=== PATIENT | male | born 1945 | race Caucasian/White ===

== ENCOUNTER 2022-12-20 18:52 | Emergency (ER) | payer MEDICARE, OTHER, SELFPAY ==
[2022-12-20] VITALS (29 sets, daily range): BP systolic 141–189; BP diastolic 68–84; PULSE 55–87; RESP 14–26; TEMP 37.1; O2SAT 79–99; BMI 28.6
--- NOTE | 2022-12-20 19:20 | ED.ABDPAIN1 ---
HPI - Abdominal Pain General Chief Complaint: Abdominal Pain Stated Complaint: nausea Time Seen by Provider: 12/20/22 19:04 Source: patient and family () Mode of arrival: walk-in Limitations: no limitations History of Present Illness HPI narrative: This 77-year-old male presents for evaluation of generalized abdominal pain with nausea, vomiting of clear emesis and constipation. The patient states that he took 3 Dulcolax a day in the past several days but has only passed a small amount of stool. The patient states he typically takes MiraLAX every day but has gotten off of his routine. He thinks that his constipation has gotten away from him. He is not passing gas. 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 He has been getting his routine follow-ups and has not had any recurrence of the cancer since that time. He has not recently had any weight loss. He denies any bloating. He states he does feel short of breath. He has had bypass surgery in the past. He has no hetal chest pain. He has been urinating normally. He has no pain or lower extremity pain or swelling. He has not had any vomiting of any foodstuff. He denies that he has eaten since yesterday so the likelihood is not that he has a foreign body in his esophagus which is causing him to have repeated emesis of clear secretions. Related Data Allergies Allergy/AdvReac Type Severity Reaction Status Date / Time No Known Drug Allergies Allergy Verified 12/20/22 19:00 Review of Systems ROS Status of ROS 10 or more systems reviewed and unremarkable except as noted in history and below PFSH PFSH Social History Smoking status: Former smoker Exam Narrative Exam Narrative: Nurses note and vital signs reviewed and patient is not hypoxic. Blood pressure is noted to be elevated at 165/74 General: Alert, nontoxic but uncomfortable appearing male sitting on the stretcher spitting clear secretions into a basin, no resp distress Skin: Warm, dry, no pallor noted. There is no rash noted. Head: Normocephalic, atraumatic Eye: Normal conjunctiva, no drainage, EOMI. PERRL Cardiovascular: Regular Rate and Rhythm S1 S2, no murmurs, rubs or gallops, pulses are brisk and equal bilaterally Respiratory: Patient is in no distress, no accessory muscle use, lungs are clear to auscultation, no wheezing, rales or rhonchi Back: non-tender, no CVA tenderness bilaterally to percussion. GI: Decreased bowel sounds, small, soft ventral hernia, no reproducible tenderness in RUQ, RLQ, epigastrium or LUQ, mild tenderness and fullness to LLq, no pulsatile masses or abdominal bruit appreciated Musculoskeletal: The patient has no evidence of calf tenderness, no pitting edema, symmetrical pulses noted bilaterally Neurological: A&O x4, normal speech Psychiatric: anxious, alert Constitutional Vital Signs, click to edit/add: Last Vital Signs Temp 98.8 F 12/20/22 18:56 Pulse 70 12/20/22 23:00 Resp 14 12/20/22 20:00 BP 141/74 12/20/22 23:00 Pulse Ox 96 12/20/22 23:00 O2 Del Method Room Air 12/20/22 18:56 Course Vital Signs Vital signs: Vital Signs Temperature 98.8 F 12/20/22 18:56 Pulse Rate 74 12/20/22 18:56 Respiratory Rate 20 12/20/22 18:56 Blood Pressure 180/84 H 12/20/22 18:56 Pulse Oximetry 99 12/20/22 18:56 Oxygen Delivery Method Room Air 12/20/22 18:56 Temperature 98.8 F 12/20/22 18:56 Pulse Rate 70 12/20/22 23:00 Respiratory Rate 14 12/20/22 20:00 Blood Pressure 141/74 12/20/22 23:00 Pulse Oximetry 96 12/20/22 23:00 Oxygen Delivery Method Room Air 12/20/22 18:56 MDM - Abdominal Pain MDM Narrative Medical decision making narrative: This 77-year-old male with 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 He had not eaten anything since yesterday making the likelihood that he had an esophageal foreign body unlikely. His abdomen was soft with no reproducible tenderness. Does have a history of coronary artery disease and is status post bypass surgery in the past. EKG was ordered and it shows a RBBB but no acute changes, an IV was established and he was medicated with iL NS, 4mg IV morphine and 4mg IV zofran. This helped his nausea but not his pain and he was remedicated with a milligram of IV Dilaudid. His pain was under control at that time. Routine labs including CBC with differential, comprehensive metabolic profile, lipase and lactic acid were ordered. His lactic acid is 2. Lipase is normal. Abdomen elevated creatinine at 1.8. CT scan of the abdomen and pelvis with IV contrast Was ordered due to the acute onset of his abdominal pain and history of sarcoma. I considered a noncontrast CT scan but felt that it would not give us the information we needed if his cancer had occurred or become metastatic. CT scan of the abdomen and pelvis shows acute diverticulitis and multiple hepatic cysts, well as gallstones. His symptoms are likely related to diverticulitis and he was medicated in emergency department with 500 mg of IV Cipro and 500 mg of IV Flagyl. His pain has been under control since the 1 mg of Dilaudid. He will be discharged home with a prescription for Percocet, Zofran, Cipro and Flagyl. He will follow up closely with his family physician. He was encouraged return to emergency department for worsening pain, inability to tolerate his medications, his fevers or any concerns. Medical Records Medical records narrative: [place] [address] CT Scan Report Signed Patient: CRYSTAL KING MR#: [id number] : 1945 Acct:[id number] Age/Sex: 77 / M ADM Date: 12/20/22 Loc: ER Attending Dr: Ordering Physician: Pearl Chapin Date of Service: 12/20/22 Procedure(s): CT abdomen pelvis w con Accession Number(s): [id number] cc: DEVAUGHN DALLAS ~ The [address] [address] Patient Name: CRYSTAL KING MRN: [id number] date: 1945 Sex: M Assigned Patient Location: ER Current Patient Location: ER Accession/Order Number: [id number] Exam Date: 12/20/2022 21:00 Report Date: 12/20/2022 22:06 At the request of: PEARL CHAPIN Procedure: CT abdomen pelvis w con EXAM: CT abdomen pelvis w con TECHNIQUE: Axial CT images were obtained of the abdomen and pelvis with intravenous contrast. Sagittal and coronal reformatted images were also obtained. Dose reduction techniques were achieved by using automated exposure control and/or adjustment of mA and/or kV according to patient size and/or use of iterative reconstruction technique. HISTORY: SBO COMPARISON: 07/14/2013 FINDINGS: Lower chest: Linear atelectasis in the left lung base. Liver: Numerous hepatic cysts measuring up to 6 cm in segment 7. Gallbladder: Multiple tiny calcific stones of the gallbladder. Pancreas: The pancreas is homogeneous without evidence for mass lesion or inflammation. Spleen: The spleen is unremarkable without evidence for mass lesion. Adrenal glands: 15 mm adenoma of the left adrenal gland. Unremarkable right adrenal gland. Kidneys and bladder: Tiny cyst of the anterior cortex left kidney. Prior right nephrectomy with scarring posteriorly the right renal fossa.. The ureters demonstrate normal caliber. The urinary bladder is unremarkable. GI Tract: Stomach is unremarkable. Visualized small bowel is unremarkable without evidence for obstruction or active inflammation. The appendix is unremarkable.Wall thickening and inflammation of the proximal sigmoid colon where there are multiple diverticuli, consistent with acute diverticulitis. No diverticular abscess. Reproductive: The prostate gland is enlarged. Lymph nodes: No retroperitoneal or abdominal lymphadenopathy. Vascular: The aorta is not dilated. Mesenteric vessels are patent. Peritoneum: No free intraperitoneal air or fluid. No acute inflammation. Abdominal wall: Multiple small fat-containing supraumbilical anterior abdominal hernias. Severe degenerative disc disease at L2-L3 and L5-S1. CT/CT abdomen pelvis w con IMPRESSION: Acute diverticulitis of the proximal sigmoid colon. No evidence for diverticular abscess. Lab Data Labs: Lab Results 12/20/22 12/20/22 Range/Units 19:10 21:38 WBC 10.4 (4.0-11.0) 10^3/uL RBC 4.11 L (4.70-6.10) 10^6/uL Hgb 14.7 (14.0-18.0) g/dL Hct 41.1 L (42.0-54.0) % MCV 100.0 H (80.0-94.0) fL MCH 35.8 H (25.9-34.0) pg MCHC 35.8 H (29.9-35.2) g/dL RDW 13.4 (11.0-15.0) % Plt Count 172 (150-450) 10^3/uL MPV 11.2 (9.5-13.5) fL Neut % (Auto) 86.4 H (43.0-75.0) % Lymph % (Auto) 6.5 L (20.5-60.0) % [place] % (Auto) 6.4 (1.7-12.0) % Eos % (Auto) 0.2 L (0.9-7.0) % Baso % (Auto) 0.1 L (0.2-2.0) % Neut # (Auto) 9.0 H (1.4-6.5) 10^3/uL Lymph # (Auto) 0.7 L (1.2-3.8) 10^3/uL [place] # (Auto) 0.7 (0.3-0.8) 10^3/uL Eos # (Auto) 0.0 (0.0-0.7) 10^3/uL Baso # (Auto) 0.0 (0.0-0.1) 10^3/uL Abs Immat Gran (auto) 0.04 H (0.00-0.03) 10^3/uL Imm/Tot Granulo (auto) 0.4 (0.0-0.5) % Sodium 133 L (136-145) mmol/L Potassium 4.3 (3.5-5.1) mmol/L Chloride 98 (98-107) mmol/L Carbon Dioxide 27.8 (21.0-32.0) mmol/L Anion Gap 11.5 BUN 29.0 H (7.0-18.0) mg/dL Creatinine 1.80 H (0.70-1.30) mg/dL Est GFR ( Amer) 44 L (>=60) Est GFR (Non-Af Amer) 37 L (>=60) BUN/Creatinine Ratio 16.1 Glucose 136 H (74-106) mg/dL Lactate 2.0 1.5 (0.4-2.0) mmol/L Calcium 9.7 (8.5-10.1) mg/dL Total Bilirubin 1.1 H (0.2-1.0) mg/dL AST 14 L (15-37) U/L ALT 7 L (16-63) U/L Alkaline Phosphatase 107 (46-116) U/L Total Protein 7.5 (6.4-8.2) g/dL Albumin 4.0 (3.4-5.0) g/dL Globulin 3.5 g/dL Albumin/Globulin Ratio 1.1 Lipase 50.0 (16.0-77.0) U/L ECG Data Attestation: I personally reviewed and interpreted this ECG as follows: (Sinus rhythm at 65 beats for minute, occasional PACs, right bundle-branch block, normal axis, no acute ST segment elevation or T-wave inversion) Discharge Plan Discharge Chief Complaint: Abdominal Pain Clinical Impression: Gallstone, Diverticulitis, Hepatic cyst Patient Disposition: Home, Self-Care Time of Disposition Decision: 00:05 Instructions: Diverticulitis (ED), Gallstones (ED), Diverticulitis Diet (ED) Stand Alone Forms: Portal Instructions Referrals: DEVAUGHN DALLAS [Primary Care Provider] - 1 week
--- NOTE | 2022-12-20 19:26 | ECG_ITS ---
The [facility] Test Date: 2022-12-20 Pat Name: CRYSTAL KING Department: Room: - Gender: Male Manager Fine: : 1945 Requested By: [id number] Order Number: [id number] Reading MD: DIVYA BERNAL Measurements Intervals [place] Rate: 65 P: 25 VT: 174 QRS: -4 QRSD: 128 T: 46 QT: 424 QTc: 435 Interpretive Statements 1100 Sinus rhythm 1470 with occasional supraventricular premature complexes 2450 Right bundle branch block 9150 abnormal ECG No previous ECG available for comparison Electronically Signed On 12-21-2022 6:50:20 EDT by DIVYA BERNAL
[2022-12-20 19:44] LABS: Basophils Percent Auto 0.1 % (0.2-2.0); Eosinophils Percent Auto 0.2 % (0.9-7.0); Hematocrit 41.1 % (42.0-54.0); Hemoglobin 14.7 g/dL (14.0-18.0); Immature Granulocytes Abs Auto 0.04 10^3/uL (0.00-0.03); Immature Granulocytes Pct Auto 0.4 % (0.0-0.5); Lymphocytes Absolute Auto 0.7 10^3/uL (1.2-3.8); Lymphocytes Percent Auto 6.5 % (20.5-60.0); Mean Corpuscular HGB Conc 35.8 g/dL (29.9-35.2); Mean Corpuscular Hemoglobin 35.8 pg (25.9-34.0); Mean Platelet Volume 11.2 fL (9.5-13.5); Monocytes Absolute Auto 0.7 10^3/uL (0.3-0.8); Monocytes Percent Auto 6.4 % (1.7-12.0); Neutrophils Percent Auto 86.4 % (43.0-75.0); Platelet Count 172 10^3/uL (150-450); Red Blood Count 4.11 10^6/uL (4.70-6.10); Red Cell Distribution Width 13.4 % (11.0-15.0); White Blood Count 10.4 10^3/uL (4.0-11.0)
[2022-12-20 19:59] LABS: Alanine Aminotransferase 7 U/L (16-63); Albumin Globulin Ratio 1.1; Alkaline Phosphatase 107 U/L (46-116); Anion Gap 11.5; Aspartate Amino Transferase 14 U/L (15-37); BUN Creatinine Ratio 16.1; Bilirubin Total 1.1 mg/dL (0.2-1.0); Calcium 9.7 mg/dL (8.5-10.1); Carbon Dioxide 27.8 mmol/L (21.0-32.0); Chloride 98 mmol/L (98-107); Estimated GFR (African America 44 (>=60); Estimated GFR (Non-African Ame 37 (>=60); Globulin 3.5 g/dL; Glucose 136 mg/dL (74-106); Potassium 4.3 mmol/L (3.5-5.1); Sodium 133 mmol/L (136-145); Total Protein 7.5 g/dL (6.4-8.2)
[2022-12-20] MEDS: ONDANSETRON PF 4 MG/2 ML VIAL IV (20:04)
[2022-12-20] MEDS: 0.9 % SODIUM CHLORIDE 1,000 ML 1000 ML IV (20:05)
[2022-12-20] MEDS: FAMOTIDINE/PF 20 MG/2 ML VIAL IV (20:06)
[2022-12-20] MEDS: MORPHINE SULFATE 4 MG/ML VIAL IV (20:06)
--- NOTE | 2022-12-20 20:34 | CT_ITS ---
[address] [address] Patient Name: CRYSTAL KING MRN: [id number] date: 1945 Sex: M Assigned Patient Location: ER Current Patient Location: Accession/Order Number: [id number] Exam Date: 12/20/2022 21:00 Report Date: 12/20/2022 22:06 At the request of: MARTHA MARKER Procedure: CT abdomen pelvis w con EXAM: CT abdomen pelvis w con TECHNIQUE: Axial CT images were obtained of the abdomen and pelvis with intravenous contrast. Sagittal and coronal reformatted images were also obtained. Dose reduction techniques were achieved by using automated exposure control and/or adjustment of mA and/or kV according to patient size and/or use of iterative reconstruction technique. HISTORY: SBO COMPARISON: 07/14/2013 FINDINGS: Lower chest: Linear atelectasis in the left lung base. Liver: Numerous hepatic cysts measuring up to 6 cm in segment 7. Gallbladder: Multiple tiny calcific stones of the gallbladder. Pancreas: The pancreas is homogeneous without evidence for mass lesion or inflammation. Spleen: The spleen is unremarkable without evidence for mass lesion. Adrenal glands: 15 mm adenoma of the left adrenal gland. Unremarkable right adrenal gland. Kidneys and bladder: Tiny cyst of the anterior cortex left kidney. Prior right nephrectomy with scarring posteriorly the right renal fossa.. The ureters demonstrate normal caliber. The urinary bladder is unremarkable. GI Tract: Stomach is unremarkable. Visualized small bowel is unremarkable without evidence for obstruction or active inflammation. The appendix is unremarkable.Wall thickening and inflammation of the proximal sigmoid colon where there are multiple diverticuli, consistent with acute diverticulitis. No diverticular abscess. Reproductive: The prostate gland is enlarged. Lymph nodes: No retroperitoneal or abdominal lymphadenopathy. Vascular: The aorta is not dilated. Mesenteric vessels are patent. Peritoneum: No free intraperitoneal air or fluid. No acute inflammation. Abdominal wall: Multiple small fat-containing supraumbilical anterior abdominal hernias. Severe degenerative disc disease at L2-L3 and L5-S1. CT/CT abdomen pelvis w con IMPRESSION: Acute diverticulitis of the proximal sigmoid colon. No evidence for diverticular abscess. Electronically authenticated by: KEVEN OLGUIN Date: 12/20/2022 22:06
[2022-12-20] MEDS: HYDROMORPHONE HCL 2 MG/ML VIAL 1 MG IV (21:15)
[2022-12-20 22:00] LABS: Lactate/Lactic Acid 1.5 mmol/L (0.4-2.0)
[2022-12-20] MEDS: METRONIDAZOLE/SODIUM CHLORIDE 500 MG/100 ML PREMIX 100 MG IV (23:02)
[2022-12-21] VITALS (8 sets, daily range): BP systolic 120; BP diastolic 63; O2SAT 95–99
[2022-12-21] MEDS: CIPROFLOXACIN IN 5 % DEXTROSE 400 MG/200 ML PIGGYBACK 200 MG IV (00:08)
== END 2022-12-21 01:13 | disposition home or self-care (01) ==
PROVIDERS: Emergency Provider Emergency Medicine; PCP Family Medicine
DX: K80.20 Calculus of gallbladder without cholecystitis without obstruction (principal); K57.32 Diverticulitis of large intestine without perforation or abscess without bleeding; K76.89 Other specified diseases of liver; I25.10 Atherosclerotic heart disease of native coronary artery without angina pectoris; Z95.1 Presence of aortocoronary bypass graft; Z87.891 Personal history of nicotine dependence; Z85.528 Personal history of other malignant neoplasm of kidney; Z90.5 Acquired absence of kidney
CPT/HCPCS: 36415; 74177; 80053; 83605; 83690; 85025; 93005; 96361; 96365; 96366; 96368; 96375; 99285; J1170; Q9967

== ENCOUNTER 2023-07-07 20:30 | Emergency (ER) | payer MEDICARE, OTHER, SELFPAY ==
[2023-07-07 20:35] VITALS: BP 155/83; PULSE 89; TEMP 36.7; O2SAT 97; BMI 28.6
--- NOTE | 2023-07-07 20:45 | CT_ITS ---
[address] [address] Patient Name: CRYSTAL KING MRN: [id number] date: 1945 Sex: M Assigned Patient Location: ER Current Patient Location: ER Accession/Order Number: [id number] Exam Date: 07/07/2023 23:12 Report Date: 07/07/2023 23:42 At the request of: CLARE CAR Procedure: CT abdomen pelvis wo con EXAM: CT abdomen pelvis wo con HISTORY: Abdominal pain, vomiting / Oral Contrast exam COMPARISON: CT abdomen and pelvis examination dated 12/20/2022. CT abdomen and pelvis examination dated 07/14/2013. TECHNIQUE: Noncontrast axial CT images through the abdomen and pelvis were obtained with coronal and sagittal reformats Dose reduction techniques were achieved by using automated exposure control and/or adjustment of mA and/or kV according to patient size and/or use of iterative reconstruction technique. FINDINGS: There is mild bibasilar atelectasis. Abdomen: Please note that the sensitivity for detection of focal lesions or vascular disease is markedly reduced without intravenous contrast. There are multiple hepatic cysts. The spleen is unremarkable. There is no intra or extrahepatic biliary duct dilatation. There is cholelithiasis without evidence of acute inflammation. The right kidney is not seen. A stable partially calcified mass is seen in the right nephrectomy bed, likely related to a prior hematoma. There is a stable, likely benign left adrenal nodule measuring up to 1.2 x 1.5 cm (series 3, image 23). There is a left renal cyst. The pancreas, right adrenal gland, and the appendix are unremarkable. There is no mesenteric or retroperitoneal lymphadenopathy. There is acute diverticulitis of the proximal sigmoid colon. There are a few small fat-containing periumbilical hernias. Pelvis: The bladder demonstrates wall thickening. The rectum is unremarkable. There is no iliac or inguinal lymphadenopathy. There are small fat-containing inguinal hernias. There is mild prostatomegaly. There is advanced atherosclerotic disease. There are areas of focal ectasia of the infrarenal abdominal aorta measuring up to 2.9 x 2.5 cm (series 3, image 49). Bone windows show no aggressive osseous lesions. CT/CT abdomen pelvis wo con IMPRESSION: 1. Acute sigmoid diverticulitis. 2. Cholelithiasis without evidence of acute inflammation. 3. Status post right nephrectomy. 4. Normal appendix. 5. Prostamegaly. 6. Urinary bladder wall thickening which could be secondary to chronic outlet obstruction from the prostatomegaly; however, please correlate with urinalysis for infection. Electronically authenticated by: Wolfgang ESQUIVEL Date: 07/07/2023 23:42
--- NOTE | 2023-07-07 20:47 | ED.GENADUL1 ---
Documented by User: DESIRAE Lucio 07/07/23 21:53 HPI HPI - General Adult General Chief complaint: Nausea/Vomiting/Diarrhea Stated complaint: ABDONIMAL PAIN, VOMITING Time Seen by Provider: 07/07/23 20:38 Source: patient Mode of arrival: walk-in History of Present Illness HPI narrative: Patient is a 77-year-old male with a history of remote resection of the kidney secondary to cancer and most recently history of diverticulitis, Presents to the ER with his for evaluation of diffuse lower abdominal pain. He denies any other abdominal surgeries. He was seen in this emergency department in November for similar symptoms of low abdominal cramping, nausea and constipation. He states his last normal bowel movement was 3 days ago. He has been straining to pass a small amount of hard stool in the last several days. He states he passed a small amount today. He has been nauseous and dry heaving throughout the day although he has not brought up any food or fluids. No medications taken prior to arrival. No fevers or upper respiratory symptoms. He denies urinary symptoms, flank or back pain. Related Data Allergies Allergy/AdvReac Type Severity Reaction Status Date / Time No Known Drug Allergies Allergy Verified 12/20/22 19:00 Opioid HPI Opioid Management Most Recent Opioid Data: Last Pain Scale 6 12/20/22 21:15 Review of Systems ROS Constitutional Denies: fever or chills Ears, nose, mouth, and throat Denies: throat pain or nasal congestion Cardiovascular Denies: chest pain Respiratory Denies: shortness of breath or cough Gastrointestinal Reports: abdominal pain, nausea, vomiting and constipation; Denies: diarrhea or blood in stool Genitourinary Denies: painful urination Musculoskeletal Denies: back pain Integumentary/Breast Denies: rash Neurological Denies: headache PFSH PFSH Social History Smoking status: Former smoker Exam Narrative Exam Narrative: Gen.: Awake, alert, in no distress Head: Normocephalic, atraumatic ENT: Moist mucous membranes Respiratory: No respiratory distress, lungs clear bilaterally Cardio: Regular rate and rhythm Gastrointestinal: Abdomen is soft, nondistended and Mildly tender to palpation in the left lower quadrant with no guarding or rebound Extremities: Moves extremities equally Psych: Normal mood and affect Neuro: No focal neuro deficit Skin: Warm, dry, intact Constitutional Vital Signs, click to edit/add: Last Vital Signs Temp 98.0 F 07/07/23 20:35 Pulse 78 07/08/23 02:49 Resp 16 07/08/23 02:49 BP 132/72 07/08/23 02:49 Pulse Ox 99 07/08/23 02:49 O2 Del Method Room Air 07/08/23 02:49 Course Vital Signs Vital signs: Vital Signs Temperature 98.0 F 07/07/23 20:35 Pulse Rate 89 07/07/23 20:35 Respiratory Rate 18 07/07/23 20:35 Blood Pressure 155/83 H 07/07/23 20:35 Pulse Oximetry 97 07/07/23 20:35 Oxygen Delivery Method Room Air 07/07/23 20:35 Temperature 98.0 F 07/07/23 20:35 Pulse Rate 78 07/08/23 02:49 Respiratory Rate 16 07/08/23 02:49 Blood Pressure 132/72 07/08/23 02:49 Pulse Oximetry 99 07/08/23 02:49 Oxygen Delivery Method Room Air 07/08/23 02:49 Medical Decision Making [facility] Narrative Medical decision making narrative: 2152: Patient ordered to have labs, urine specimen, CT of the abdomen and pelvis with oral contrast. Patient requested he not be given IV contrast due to his history of kidney resection. He was noted to have received IV contrast on his previous admission in November. He was able to start drinking oral contrast. Pain medication, nausea medication and fluids given in the ER. Case is turned over to attending physician at this time for disposition. Medical Records Medical records reviewed: Yes I reviewed the patient's medical records Lab Data Lab results reviewed: Yes I reviewed the patient's lab results Labs: Lab Results 07/07/23 07/07/23 Range/Units 21:00 21:03 WBC 10.0 (4.0-11.0) 10^3/uL RBC 4.03 L (4.70-6.10) 10^6/uL Hgb 13.8 L (14.0-18.0) g/dL Hct 40.4 L (42.0-54.0) % MCV 100.2 H (80.0-94.0) fL MCH 34.2 H (25.9-34.0) pg MCHC 34.2 (29.9-35.2) g/dL RDW 13.5 (11.0-15.0) % Plt Count 184 (150-450) 10^3/uL MPV 10.6 (9.5-13.5) fL Seg Neuts % (Manual) 82.0 Band Neutrophils % 4.0 (0-5) % Lymphocytes % (Manual) 5.0 L (20.5-60.0) % Atypical Lymphs % (Man) 1.0 % Monocytes % (Manual) 7.0 (1.7-12.0) % Eosinophils % (Manual) 1.0 (0.9-7.0) % Basophils % (Manual) 0.0 L (0.2-2.0) % Neutrophils # (Manual) 8.20 H (1.4-6.5) 10^3/uL Band Neutrophils # 0.4 H (0.0-0.3) 10^3/uL Lymphocytes # (Manual) 0.50 L (1.20-3.80) 10^3/uL Abs Atypical Lymphs Man 0.10 Monocytes # (Manual) 0.70 (0.30-0.80) 10^3/uL Eosinophils # (Manual) 0.10 (0.00-0.70) 10^3/uL Basophils # (Manual) 0.00 (0.00-0.10) 10^3/uL Sodium 136 (136-145) mmol/L Potassium 4.6 (3.5-5.1) mmol/L Chloride 100 (98-107) mmol/L Carbon Dioxide 27.5 (21.0-32.0) mmol/L Anion Gap 13.1 BUN 25.0 H (7.0-18.0) mg/dL Creatinine 1.71 H (0.70-1.30) mg/dL Est GFR ( Amer) 47 L (>=60) Est GFR (Non-Af Amer) 39 L (>=60) BUN/Creatinine Ratio 14.6 Glucose 119 H (74-106) mg/dL Lactate 1.0 (0.4-2.0) mmol/L Calcium 9.8 (8.5-10.1) mg/dL Total Bilirubin 0.7 (0.2-1.0) mg/dL AST 14 L (15-37) U/L ALT 19 (16-63) U/L Alkaline Phosphatase 115 (46-116) U/L Total Protein 7.1 (6.4-8.2) g/dL Albumin 3.7 (3.4-5.0) g/dL Globulin 3.4 g/dL Albumin/Globulin Ratio 1.1 Lipase 70.0 (16.0-77.0) U/L Urine Color Yellow (YELLOW) Urine Clarity Clear (CLEAR) Urine pH 5.5 (5.0-9.0) Ur Specific Faulkner 1.025 (1.005-1.025) Urine Protein Negative (NEG/TRACE) mg/dL Urine Glucose (UA) Negative (NEGATIVE) mg/dL Urine Ketones Negative (NEGATIVE) mg/dL Urine Occult Blood Negative (NEGATIVE) Urine Nitrite Negative (NEGATIVE) Urine Bilirubin Negative (NEGATIVE) Urine Urobilinogen 0.2 (0.2-1.0) EU/dL Ur Leukocyte Esterase Negative (NEGATIVE) Imaging Data Chest x-ray: Radiologist's impression: ITS Impressions Abdomen/Pelvis CT 07/07/23 20:45 IMPRESSION: 1. Acute sigmoid diverticulitis. 2. Cholelithiasis without evidence of acute inflammation. 3. Status post right nephrectomy. 4. Normal appendix. 5. Prostamegaly. 6. Urinary bladder wall thickening which could be secondary to chronic outlet obstruction from the prostatomegaly; however, please correlate with urinalysis for infection. Electronically authenticated by: Wolfgang ESQUIVEL Date: 07/07/2023 23:42 Discharge Plan Discharge Stand Alone Forms: Portal Instructions Chief Complaint: Nausea/Vomiting/Diarrhea Clinical Impression: Abdominal pain, Diverticulitis Patient Disposition: Home, Self-Care Print Language: [place]awian Instructions: Diverticulitis (ED) Additional Instructions: Follow up with your doctor for a recheck in 2-3 days. Cipro twice daily for 10 days Flagyl three times daily for 10 days 1-2 [place] every 8 hours as needed for pain. Referrals: DEVAUGHN DALLAS [Primary Care Provider] - 1 week Discharge Date/Time: 07/08/23 02:49 Documented by User: Ricardo Tadeo MD 07/08/23 19:32 HPI HPI - General Adult General Chief complaint: Nausea/Vomiting/Diarrhea Stated complaint: ABDONIMAL PAIN, VOMITING Time Seen by Provider: 07/07/23 20:38 Related Data Allergies Allergy/AdvReac Type Severity Reaction Status Date / Time No Known Drug Allergies Allergy Verified 12/20/22 19:00 Opioid HPI Opioid Management Most Recent Opioid Data: Last Pain Scale 6 12/20/22 21:15 PFSH PFSH Social History Smoking status: Former smoker Exam Constitutional Vital Signs, click to edit/add: Last Vital Signs Temp 98.0 F 07/07/23 20:35 Pulse 78 07/08/23 02:49 Resp 16 07/08/23 02:49 BP 132/72 07/08/23 02:49 Pulse Ox 99 07/08/23 02:49 O2 Del Method Room Air 07/08/23 02:49 Course Vital Signs Vital signs: Vital Signs Temperature 98.0 F 07/07/23 20:35 Pulse Rate 89 07/07/23 20:35 Respiratory Rate 18 07/07/23 20:35 Blood Pressure 155/83 H 07/07/23 20:35 Pulse Oximetry 97 07/07/23 20:35 Oxygen Delivery Method Room Air 07/07/23 20:35 Temperature 98.0 F 07/07/23 20:35 Pulse Rate 78 07/08/23 02:49 Respiratory Rate 16 07/08/23 02:49 Blood Pressure 132/72 07/08/23 02:49 Pulse Oximetry 99 07/08/23 02:49 Oxygen Delivery Method Room Air 07/08/23 02:49 Medical Decision Making [facility] Narrative Medical decision making narrative: 258: Patient ordered to have labs, urine specimen, CT of the abdomen and pelvis with oral contrast. Patient requested he not be given IV contrast due to his history of kidney resection. He was noted to have received IV contrast on his previous admission in November. He was able to start drinking oral contrast. Pain medication, nausea medication and fluids given in the ER. Case is turned over to attending physician at this time for disposition. care transferred at change of shift. CT returns with findings of diverticulitis. Patient given antibiotics in the department and discharged home to follow up with his doctor Lab Data Labs: Lab Results 07/07/23 07/07/23 Range/Units 21:00 21:03 WBC 10.0 (4.0-11.0) 10^3/uL RBC 4.03 L (4.70-6.10) 10^6/uL Hgb 13.8 L (14.0-18.0) g/dL Hct 40.4 L (42.0-54.0) % MCV 100.2 H (80.0-94.0) fL MCH 34.2 H (25.9-34.0) pg MCHC 34.2 (29.9-35.2) g/dL RDW 13.5 (11.0-15.0) % Plt Count 184 (150-450) 10^3/uL MPV 10.6 (9.5-13.5) fL Seg Neuts % (Manual) 82.0 Band Neutrophils % 4.0 (0-5) % Lymphocytes % (Manual) 5.0 L (20.5-60.0) % Atypical Lymphs % (Man) 1.0 % Monocytes % (Manual) 7.0 (1.7-12.0) % Eosinophils % (Manual) 1.0 (0.9-7.0) % Basophils % (Manual) 0.0 L (0.2-2.0) % Neutrophils # (Manual) 8.20 H (1.4-6.5) 10^3/uL Band Neutrophils # 0.4 H (0.0-0.3) 10^3/uL Lymphocytes # (Manual) 0.50 L (1.20-3.80) 10^3/uL Abs Atypical Lymphs Man 0.10 Monocytes # (Manual) 0.70 (0.30-0.80) 10^3/uL Eosinophils # (Manual) 0.10 (0.00-0.70) 10^3/uL Basophils # (Manual) 0.00 (0.00-0.10) 10^3/uL Sodium 136 (136-145) mmol/L Potassium 4.6 (3.5-5.1) mmol/L Chloride 100 (98-107) mmol/L Carbon Dioxide 27.5 (21.0-32.0) mmol/L Anion Gap 13.1 BUN 25.0 H (7.0-18.0) mg/dL Creatinine 1.71 H (0.70-1.30) mg/dL Est GFR ( Amer) 47 L (>=60) Est GFR (Non-Af Amer) 39 L (>=60) BUN/Creatinine Ratio 14.6 Glucose 119 H (74-106) mg/dL Lactate 1.0 (0.4-2.0) mmol/L Calcium 9.8 (8.5-10.1) mg/dL Total Bilirubin 0.7 (0.2-1.0) mg/dL AST 14 L (15-37) U/L ALT 19 (16-63) U/L Alkaline Phosphatase 115 (46-116) U/L Total Protein 7.1 (6.4-8.2) g/dL Albumin 3.7 (3.4-5.0) g/dL Globulin 3.4 g/dL Albumin/Globulin Ratio 1.1 Lipase 70.0 (16.0-77.0) U/L Urine Color Yellow (YELLOW) Urine Clarity Clear (CLEAR) Urine pH 5.5 (5.0-9.0) Ur Specific [place] 1.025 (1.005-1.025) Urine Protein Negative (NEG/TRACE) mg/dL Urine Glucose (UA) Negative (NEGATIVE) mg/dL Urine Ketones Negative (NEGATIVE) mg/dL Urine Occult Blood Negative (NEGATIVE) Urine Nitrite Negative (NEGATIVE) Urine Bilirubin Negative (NEGATIVE) Urine Urobilinogen 0.2 (0.2-1.0) EU/dL Ur Leukocyte Esterase Negative (NEGATIVE) Imaging Data Chest x-ray: Radiologist's impression: ITS Impressions Abdomen/Pelvis CT 07/07/23 20:45
[2023-07-07] MEDS: HYDROMORPHONE HCL 1 MG/ML CARTRIDGE 0.5 MG IVP (21:07)
[2023-07-07] MEDS: 0.9 % SODIUM CHLORIDE 1,000 ML 999 ML IV (21:07)
[2023-07-07] MEDS: ONDANSETRON PF 4 MG/2 ML VIAL IV (21:07)
[2023-07-07] MEDS: HYOSCYAMINE SULFATE 0.125 MG TAB.SUBL SL (21:08)
[2023-07-07 21:09] LABS: Hematocrit 40.4 % (42.0-54.0); Hemoglobin 13.8 g/dL (14.0-18.0); Mean Corpuscular HGB Conc 34.2 g/dL (29.9-35.2); Mean Corpuscular Hemoglobin 34.2 pg (25.9-34.0); Mean Corpuscular Volume 100.2 fL (80.0-94.0); Mean Platelet Volume 10.6 fL (9.5-13.5); Platelet Count 184 10^3/uL (150-450); Red Blood Count 4.03 10^6/uL (4.70-6.10); Red Cell Distribution Width 13.5 % (11.0-15.0)
--- OUTSIDE RECORDS SUMMARY | 2023-07-07 21:09 | XMS_ITS | CCD ---
Author Organization [facility] Care Team Providers Care Glass Calibrator Name Role Phone MISC, DR DIAZ Admitting Unavailable MISC, DR DIAZ Attending Unavailable MISC, DR DIAZ Consulting Unavailable Juan HEREDIA, Devaughn Primary Care Provider [phone] Mario GUEVARA, Emili Unavailable Unavailable Ju GUEVARA, Evelyn Unavailable Unavailable Megan GUEVARA, Fatoumata Unavailable Unavailable Timmy HEREDIA, Reinaldo Unavailable Devaughn Martinez MD Primary Care Provider [phone] DEVAUGHN MARTINEZ Primary Care Unavailable GRIGNOL, JAVIER P Attending Unavailable ROMANHEAVENLY Referring Unavailable DEFRANCE, DEVAUGHN Primary Care Unavailable GRIGNOL, JAVIER P Attending Unavailable ROMANHEAVENLY Referring Unavailable GRIGNOL, JAVIER Barnes Attending Unavailable GRGARRETTOLJAVIER Referring Unavailable DEFRANCE, DEVAUGHN Primary Care Unavailable RTAE WALSH Referring Unavailable DEFRANCE, DEVAUGHN Hale Primary Care Unavailable REINALDO WARNER Attending Unavailable DEFRANCE, DEVAUGHN Hale Referring Unavailable DEFRANCE, DEVAUGHN Hale Primary Care Unavailable DEFRANCE, DEVAUGHN Hale Attending Unavailable DEFRANCE, DEVAUGHN Hale Referring Unavailable DEFRANCE, DEVAUGHN Hale Primary Care Unavailable REBECA RICKS Attending Unavailable DEFRANCE, DEVAUGHN Hale Referring Unavailable DEFRANCE, DEVAUGHN Hale Primary Care Unavailable Allergies Allergy Classification Reported Allergen(s) Allergy Type Date of Onset Reaction(s) Facility (15 sources) Amoxicillin; Translations: [AMOXICILLIN] Drug Allergy 7 Dizzy/Vertigo [facility] (6 sources) Cefixime; Translations: [CEFIXIME] Propensity to adverse reactions to drug 7 [facility] (6 sources) Cefprozil; Translations: [CEFPROZIL] Propensity to adverse reactions to drug 7 [facility] (15 sources) Doxycycline; Translations: [DOXYCYCLINE] Drug Allergy 7 [facility] (4 sources) metroNIDAZOLE Drug Allergy 7 [facility] (9 sources) Cefixime Drug Allergy 7 [facility] (9 sources) cefprozil Drug Allergy 7 [facility] Medications Current Medications Medication Drug Class(es) Dates Sig (Normalized) Sig (Original) allopurinol 300 mg oral tablet (15 sources) Xanthine Oxidase Inhibitor Start: 06-01-2023 take 300 mg by mouth once daily Allopurinol Active 300 MG PO Daily June 01, 2023 12:00am Start: 09-03-2022 End: 02-26-2023 take 1 tablet by mouth in the morning allopurinoL (ZYLOPRIM) 300 mg tablet Take 1 tablet (300 mg total) by mouth in the morning. 90 tablet 3 02/26/2023 Active take 3 tablets by mo uth once daily allopurinol 100 MG Tab tablet Take 3 tablets by mouth daily. Active amLODIPine 5 mg / benazepril hydrochloride 20 mg oral capsule (15 sources) Dihydropyridine Calcium Channel Laura, Angiotensin Converting Enzyme Inhibitor Start: 06-01-2023 take 1 capsule by mouth once daily Amlodipine-Benazepril Active 1 CAP PO Daily June 01, 2023 12:00am Start: 09-24-2022 End: 03-25-2023 take 1 capsule by mouth once in the morning amLODIPine-benazepril (LOTREL) 5-20 mg per capsule Take 1 capsule by mouth in the morning. 90 capsule 3 03/25/2023 Active Start: 03-27-2021 amlodipine-william azepril 5-20 MG capsule 03/27/2021 Active aspirin 81 mg delayed release oral tablet (10 sources) Platelet Aggregation Inhibitor, Nonsteroidal Anti-inflammatory Drug Start: 06-01-2023 take 81 mg by mouth once daily Aspirin Active 81 MG PO Daily June 01, 2023 12:00am take 1 tablet by mouth in the mo rning aspirin 81 mg Take 1 tablet (81 mg total) by mouth in the morning. 0 Active Azithromycin (1 source) Macrolide Antimicrobial Start: 06-01-2023 Azithromycin Active 0 PO .COMPLEX 6 June 01, 2023 12:00am For 250 mg dose pack: take 500 mg today (day 1), then 250 mg for 4 days (days 2-5) PO colchicine 0.6 mg oral tablet (15 sources) Start: 06-01-2023 Colchicine Act debbi 0.6 MG PO Every 48 hours June 01, 2023 12:00am Start: 09-03-2022 End: 03-04-2023 take 1 tablet by mouth every other day colchicine (COLCRYS) 0.6 mg tablet Take 1 tablet (0.6 mg total) by mouth every other day. 45 tablet 1 03/04/2023 Active take 1 tablet by mj once daily colchicine 0.6 MG Tab tablet Take 1 tablet by mouth daily. Active dextromethorphan hydrobromide 1.5 mg/ml / pyrilamine maleate 1.5 mg/ml oral solution (1 source) Uncompetitive M-rselok-Y-aspartate Receptor Antagonist, Sigma-1 Agonist Start: 06-01-2023 take 1 mL by mouth every eight hours Pyrilamine-Dextromethorphan (Whatley Dm) 7.5-7.5 mg/5 mL liquid Active 10 ML PO Every 8 hours 150 5 June 01, 2023 12:00am DULoxetine 30 mg delayed release oral capsule (14 sources) Serotonin and Norepinephrine Reuptake Inhibitor Start: 06-01-2023 take 30 mg by mouth once daily Duloxetine Active 30 MG PO Daily June 01, 2023 12:00am Start: 02-19-2023 take 1 capsule by mo [facility] in the morning DULoxetine (CYMBALTA) 30 mg capsule Take 1 capsule (30 mg total) by mouth in the morning. 90 capsule 3 02/19/2023 Active duloxetine [address] Particles capsule DR Take 30 mg by mouth daily. Active fluticasone propionate 0.05 mg/actuat metered dose nasal spray (15 sources) Corticosteroid Start: 06-01-2023 Fluticasone Pr opionate Active INTRANASAL June 01, 2023 12:00am Start: 06-28-2022 End: 04-12-2023 take 1 puff(s) nasal route once daily fluticasone propionate (FLONASE) 50 mcg/actuation nasal spray [place] one puff in each nostril daily 16 g 5 04/12/2023 Active Start: 07-11-2020 fluticasone 50 MCG/ACT Suspension nasal spray 2 sprays by Nasal route. 07/11/2020 Active ipratropium bromide 0.042 mg/actuat metered dose nasal spray (12 sources) Anticholinergic take 2 spray(s) nasal route in the morning ipratropium (ATROVENT) 42 mcg (0.06 %) nasal spray Administer 2 sprays into each nostril in the morning. 0 Active End: 05-01-2023 ipratropium 0.03 % Solution 2 sprays by Nasal route as needed. 05/01/2023 Discontinued (Therapy completed) magnesium glycinate 100 mg oral tablet (11 sources) Start: 06-01-2023 take 200 mg by mouth once daily Magnesium Glycinate Active 200 MG PO Daily June 01, 2023 12:00am Start: 01-24-2023 End: 04-17-2023 take 1 tablet by mouth once daily magnesium glycinate 100 mg tablet Take 1 tablet (100 mg total) by mouth nightly. 30 tablet 5 04/17/2023 Active nitroglycerin 0.4 mg sublingual tablet (14 sources) Nitrate Vasodilator Start: 06-01-2023 Nitroglyce rin Active 0.4 MG SUBLINGUAL every 5 to 15 minutes June 01, 2023 12:00am do not exceed 3 doses per episode Start: 04-13-2020 nitroglycerin (NITROSTAT) 0.[address] 1 tablet (0.4 mg total) under the tongue every 5 (five) minutes as needed for chest pain. 25 tablet 5 04/13/2020 Active polyethylene glycol 3350 82510 mg powder for oral solution (5 sources) Osmotic Laxative Start: 06-01-2023 Polyethylene Glycol 3350 (Miralax) 17 gram/dose powder Active 17 GM PO Every 48 hours June 01, 2023 12:00am take 8.5 g by mouth every other day polyethylene glycol Powder Indications: Sarcoma Take 8.5 g by mouth every other day. Active Polyethylene Glycols (9 sources) take 17 g by mouth every other day POLYETHYLENE GLYCOL 3350 (MIRALAX ORAL) Take 17 g by mouth every other day. 0 Active predniSONE 20 mg oral tablet (1 source) Start: take 20 mg by mouth twice daily Prednisone Active 20 MG PO Twice daily 10 5 June 01, 2023 12:00am simvastatin 10 mg oral tablet (15 sources) HMG-CoA Reductase Inhibitor Start: take 10 mg by mouth once daily Simvastatin Active 10 MG PO Daily June 01, 2023 12:00am Start: 11-05-2022 End: 05-06-2023 take 1 tablet by mouth once daily simvastatin (ZOCOR) 10 mg tablet Take 1 tablet (10 mg total) by mouth nightly. 90 tablet 1 05/06/2023 Active tadalafil 10 mg oral tablet (9 sources) Phosphodiesterase 5 Inhibitor Start: 07-18-2021 take 1 tablet by mouth once daily as needed tadalafiL (CIALIS) 10 MG tablet Take 1 tablet (10 mg total) by mouth daily as needed for erectile dysfunction. 10 tablet 5 07/18/2021 Active triamcinolone acetonide 1 mg/ml topical cream (14 sources) Corticosteroid Start: 06-01-2023 Triamcinolone Acetonide Active 1 APPLIC TOPICAL Twice daily June 01, 2023 12:00am triamcinolone (K ENALOG) 0.1 % cream Apply 1 Application topically daily as needed. 0 Active triamcinolone 0. 1 % Cream cream Indications: Preop exam for internal medicine , Coronary artery disease involving [place] coronary artery of [place] heart without angina pectoris , Kidney stone , Essential hypertension , Heartburn , Hx of CABG , Sarcoma Apply 1 Application topically 2 times daily. Use on ankles Active wheat dextrin 3000 mg powder for oral solution (14 sources) Start: 06-01-2023 Wheat Dextrin (Benefiber Clear Sf (Dextrin)) 3 gram/3.5 gram powder in packet Active 1.5 GM PO Every 48 hours June 01, 2023 12:00am wheat dextrin 3 gram/3.5 gram powder as directed Orally 0 Active Zinc (13 sources) Zinc 100 MG tabl et Take 50 mg by mouth daily. Active take 1 tablet by mouth in the mo rning zinc 50 mg tablet tablet Take 1 tablet (50 mg total) by mouth in the morning. 0 Active Zinc 100 MG tabl et Take 50 mg by mouth daily. 0 Active zinc gluconate 50 mg oral tablet (1 source) Start: 06-01-2023 take 50 mg by mouth once daily Zinc Gluconate Active 50 MG PO Daily June 01, 2023 12:00am Completed/Discontinued Medications Medication Drug Class(es) Dates Sig (Normalized) Sig (Original) daridorexant (QUVIVIQ) 50 mg tablet (6 sources) Start: 04-02-2023 End: 05-07-2023 take 1 tablet by mouth once daily at bedtime daridorexant (QUVIVIQ) 50 mg tablet Indications: Chronic insomnia Take 50 mg by mouth once daily at bedtime. 30 tablet 1 04/02/2023 05/07/2023 Discontinued Start: 04-02-2023 take 1 tablet by mj once daily at bedtime daridorexant (QUVIVIQ) 50 mg tablet Indications: Chronic insomnia Take 50 mg by mouth once daily at bedtime. 30 tablet 1 04/02/2023 Active Iohexol (OMNIPAQUE) 300 MG/ML 50 mL in Water liquid (free water) 950 mL (1 source) Start: 05-01-2023 End: 05-01-2023 take 1 dose by mouth once 15,000 mg, Oral, ONCE, 1 dose, On Sat05/01/23 at 1045, For administration to inpatients, to be given by RN on inpatient nursing unit., CT Procedure LORazepam 1 mg oral tablet (3 sources) Benzodiazepine End: 05-01-2023 take 1 tablet by mouth every eight hours as needed LORazepam 1 MG PO TABS Indications: Sarcoma Take 1 mg by mouth every 8 hours as needed. 05/01/2023 Discontinued (Therapy completed) prasugrel 10 mg oral tablet (3 sources) P2Y12 Platelet Inhibitor Start: 12-19-2020 End: 05-01-2023 take 1 tablet by mouth once daily Prasugrel HCl 10 MG tablet Take 10 mg by mouth daily. 12/19/2020 05/01/2023 Discontinued (Therapy completed) zolpidem tartrate 10 mg oral tablet (9 sources) gamma-Aminobutyric Acid-ergic Agonist End: 05-07-2023 take 1 tablet by mouth once daily as needed for sleep zolpidem (AMBIEN) 10 mg tablet Take 1 tablet (10 mg total) by mouth nightly as needed for sleep. 0 05/07/2023 Discontinued End: 05-01-2023 take 2 tablets by mouth at bedtime as needed for sleep zolpidem 5 MG Tab Indications: Sarcoma Take 10 mg by mouth at bedtime as needed for Sleep. 05/01/2023 Discontinued (Therapy completed) Problems Active Problems Problem Classification Problem Date Documented Da te Episodic/Chronic Anxiety disorders (14 sources) Generalized anxiety disorder; Translations: [Generalized anxiety disorder] Onset: 02-16-2010 05-28-2012 Chronic Aortic; peripheral; and visceral artery aneurysms (13 sources) Abdominal aortic aneurysm; Translations: [AAA (abdominal aortic aneurysm)] Onset: 10-15-2014 05-10-2017 Chronic Biliary tract disease (9 sources) Gallstone; Translations: [Calculus of gallbladder without cholecystitis without obstruction] 06-06-2017 Episodic Calculus of urinary tract (13 sources) Kidney stone; Translations: [Calculus of kidney] Onset: 05-09-2017 05-09-2017 Episodic Cancer of bone and connective tissue (18 sources) Sarcoma; 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, unspecified] Onset: 04-07-2012 04-07-2012 Chronic Chronic kidney disease (9 sources) Chronic kidney disease stage 3; Translations: [CKD (chronic kidney disease), stage III] Onset: 04-02-2019 04-02-2019 Chronic Chronic kidney disease (1 source) Chronic kidney disease; Translations: [Chronic kidney disease, stage 3a] Onset: 06-05-2023 Coronary atherosclerosis and other heart disease (20 sources) Coronary arteriosclerosis; Translations: [Atherosclerotic heart disease of [place] coronary artery without angina pectoris] Onset: 07-10-2012 07-10-2012 Chronic Disorders of lipid metabolism (11 sources) Mixed hyperlipidemia; Translations: [Mixed hyperlipidemia] Onset: 12-07-2014 09-28-2020 Chronic Diverticulosis and diverticulitis (9 sources) Diverticulosis of large intestine; Translations: [Diverticulosis of large intestine without perforation or abscess without bleeding] Onset: 01-19-2019 01-19-2019 Chronic Essential hypertension (15 sources) Hypertensive disorder; Translations: [Essential (primary) hypertension] Onset: 08-01-2005 07-10-2012 Chronic Genitourinary congenital anomalies (9 sources) Absent kidney; Translations: [Solitary kidney] Onset: 04-02-2019 04-02-2019 Chronic Miscellaneous mental health disorders (2 sources) Chronic insomnia; Translations: [Psychophysiologic insomnia] Onset: 04-02-2023 04-02-2023 Chronic Mood disorders (13 sources) Recurrent major depressive episodes, mild ; Translations: [Major depressive disorder, recurrent, mild] Onset: 05-04-2012 08-13-2012 Chronic Other nervous system disorders (9 sources) Meralgia paresthetica of right leg; Translations: [Meralgia paresthetica, right lower limb] Onset: 05-04-2022 05-04-2022 Chronic Other screening for suspected conditions (not mental disorders or infectious disease) (20 sources) Encounter for screening, unspecified; Translations: [History of adenomatous polyp of colon] Onset: 12-11-2018 Episodic Other upper respiratory infections (1 source) Other acute sinusitis; Translations: [Other acute sinusitis] Onset: 06-05-2023 Episodic Residual codes; unclassified (19 sources) Obstructive sleep apnea syndrome; Translations: [Obstructive sleep apnea (adult) (pediatric)] Onset: 11-09-2014 11-30-2016 Chronic Residual codes; unclassified (1 source) Current drinker; Translations: [Other specified health status] 04-02-2023 Episodic Spondylosis; intervertebral disc disorders; other back problems (9 sources) Arthritis of spine; Translations: [Spondylosis without myelopathy or radiculopathy, lumbosacral region] Onset: 05-04-2022 05-04-2022 Chronic Past or Other Problems Problem Classification Problem Date Documented Da te Episodic/Chronic Cancer; other and unspecified primary (13 sources) History of soft tissue sarcoma; Translations: [Personal history of malignant neoplasm of soft tissue] Onset: 06-19-2018 06-19-2018 Episodic Fluid and electrolyte disorders (9 sources) Hyperkalemia; Translations: [Hyperkalemia] Onset: 04-13-2017 04-13-2017 Episodic Malaise and fatigue (4 sources) Fatigue; Translations: [Other fatigue] Onset: 07-10-2012 07-10-2012 Episodic Mood disorders (13 sources) Mood disorders Onset: 05-03-2021 Resolved: 01-24-2023 05-03-2021 Other and unspecified benign neoplasm (9 sources) Adenomatous polyp of colon ; Translations: [Benign neoplasm of transverse colon] Onset: 01-19-2019 01-19-2019 Episodic Other connective tissue disease (9 sources) Neuralgia of nerve of right lower limb; Translations: [Neuralgia and neuritis, unspecified] Onset: 04-11-2022 04-11-2022 Episodic Other gastrointestinal disorders (4 sources) Heartburn; Translations: [Heartburn] Onset: 05-23-2012 05-23-2012 Episodic Other lower respiratory disease (9 sources) Dyspnea on exertion; Translations: [Other forms of dyspnea] Onset: 06-21-2020 06-21-2020 Episodic Unclassified (9 sources) Onset: 06-12-2022 06-12-2022 Results Test Name Value Interpretation Reference Range Facility BASIC METABOLIC PANLon 06-04 Anion gap [Moles/Vol] 10 mmol/L Normal 5-15 [facility] Comment on above: Performed By: #### 2 731-8, 2777-1, UPCR, 89723-8, CBC, 91431- 6, BMP #### [facility] ([id number]) [address], [address] [place] [address] Calcium [Mass/Vol] 9.3 mg/dL Normal 8.5-10.5 [facility] Comment on above: Performed By: #### 2 731-8, 2777-1, UPCR, 13469-0, CBC, 48523- 6, BMP #### [facility] ([id number]) [address], [address] [place] [address] Chloride [Moles/Vol] 103 mmol/L Normal 98-109 [facility] Comment on above: Performed By: #### 2 731-8, 2777-1, UPCR, 09358-2, CBC, 64509- 6, BMP #### [facility] ([id number]) [address], [address] [place] [address] CO2 [Moles/Vol] 26 mmol/L Normal 22-32 [facility] Comment on above: Performed By: #### 2 731-8, 2777-1, UPCR, 31748-3, CBC, 48694- 6, BMP #### [facility] ([id number]) [address], [address] [place] [address] Creatinine [Mass/Vol] 1.48 mg/dL High 0.60-1.30 [facility] Comment on above: Result Comment: METH OD TRACEABLE TO IDMS STANDARD Performed By: #### 2 731-8, 2777-1, UPCR, 64739-6, CBC, 45255-9, BMP #### [facility] ([id number]) [address], [address] [place] [address] GFR/1.73 sq M.predicted among non-blacks MDRD (S/P/Bld) [Vol rate/Area] 48 mL/min/{1.73_m2} Low >59 [facility] Comment on above: Result Comment: Reported eGFR is based on the CKD-EPI 2020 equation that does not use a race coefficient. Performed By: #### 2 731-8, 2777-1, UPCR, 69357-7, CBC, 85878-2, BMP #### [facility] ([id number]) [address], [address] [place] [address] Glucose [Mass/Vol] 132 mg/dL High 65-99 [facility] Comment on above: Performed By: #### 2 731-8, 2777-1, UPCR, 91508-5, CBC, 37508- 6, BMP #### [facility] ([id number]) [address], [address] [place] [address] Potassium [Moles/Vol] 4.6 mmol/L Normal 3.5-5.0 [facility] Comment on above: Performed By: #### 2 731-8, 2777-1, UPCR, 36875-5, CBC, 45760- 6, BMP #### [facility] ([id number]) [address], [address] [place] [address] Sodium [Moles/Vol] 139 mmol/L Normal 134-146 [facility] Comment on above: Performed By: #### 2 731-8, 2777-1, UPCR, 24905-2, CBC, 34189- 6, BMP #### [facility] ([id number]) [address], [address] [place] [address] Urea nitrogen [Mass/Vol] 40 mg/dL High 5-27 [facility] Comment on above: Performed By: #### 2 731-8, 2777-1, UPCR, , CBC, 47859- 6, BMP #### [facility] ([id number]) [address], [address] [place] [address] COMPLETE BLOOD COUNTon 06-04 Erythrocyte distribution width (RBC) [Ratio] 14.5 % Normal 11.5-15.0 [facility] Comment on above: Performed By: #### 2 731-8, 2777-1, UPCR, , CBC, 74463- 6, BMP #### [facility] ([id number]) [address], [address] [place] [address] Hematocrit (Bld) [Volume fraction] 39.4 % Normal 39-49 [facility] Comment on above: Performed By: #### 2 731-8, 2777-1, UPCR, , CBC, 03224- 6, BMP #### [facility] ([id number]) [address], [facility] [address] [place] [address] Hemoglobin (Bld) [Mass/Vol] 13.4 g/dL Normal 13.0-17.0 [facility] Comment on above: Performed By: #### 2 731-8, 2777-1, UPCR, , CBC, 55782- 6, BMP #### [facility] ([id number]) [address] [place] [address] MCH (RBC) [Entitic mass] 34.3 pg High 27-34 [facility] Comment on above: Performed By: #### 2 731-8, 2777-1, UPCR, 28251-8, CBC, 07791- 6, BMP #### [facility] ([id number]) [address], [address] [place] [address] MCHC (RBC) [Mass/Vol] 33.9 g/dL Normal 32-36 [facility] Comment on above: Performed By: #### 2 731-8, 2777-1, UPCR, 42340-8, CBC, 58941- 6, BMP #### [facility] ([id number]) [address], [facility] [address] [place] [address] MCV (RBC) [Entitic vol] 101 fL High 80-100 [facility] Comment on above: Performed By: #### 2 731-8, 2777-1, UPCR, 46512-2, CBC, 11620- 6, BMP #### [facility] ([id number]) [address], [facility] [address] [place] [address] Platelet mean volume (Bld) [Entitic vol] 8.9 fL Normal 7-12 [facility] Comment on above: Performed By: #### 2 731-8, 2777-1, UPCR, 70196-5, CBC, 02845- 6, BMP #### [facility] ([id number]) [address], [facility] [address] [place] [address] Platelets (Bld) [#/Vol] 190 10*3/uL Normal 150-450 [facility] Comment on above: Performed By: #### 2 731-8, 2777-1, UPCR, 68823-8, CBC, 52226- 6, BMP #### [facility] ([id number]) [address], [facility] [address] [place] [address] RBC COUNT 3.90 X10E12/L Low 4.10-5.70 [facility] Comment on above: Performed By: #### 2 731-8, 2777-1, UPCR, 60903-2, CBC, 80503- 6, BMP #### [facility] ([id number]) [address], [address] [place] [address] WBC (Bld) [#/Vol] 9.2 10*3/uL Normal 4.0-11.0 [facility] Comment on above: Performed By: #### 2 731-8, 2777-1, UPCR, , CBC, 14797- 6, BMP #### [facility] ([id number]) [address], [address] [place] [address] MAGNESIUMon 06-05-2023 Magnesium [Mass/Vol] 2.0 mg/dL Normal 1.8-2.6 [facility] Comment on above: Performed By: #### 2 731-8, 2777-1, UPCR, , CBC, 12223- 6, BMP #### [facility] ([id number]) [address], [address] [place] [address] PHOSPHORUSon 06-05-2023 Phosphate [Mass/Vol] 3.9 mg/dL Normal 2.4-4.9 [facility] Comment on above: Performed By: #### 2 731-8, 7-1, UPCR, , CBC, 55476- 6, BMP #### [facility] ([id number]) [address], [address] [place] [address] PROTEIN CREAT RATIOon 2023 RANDOM URINE PROTEIN 150 mg/L High <120 [facility] Comment on above: Performed By: #### 2 731-8, 2777-1, UPCR, , CBC, 56507- 6, BMP #### [facility] ([id number]) [address], [address] [place] [address] U/PRO/GOLF TECHNICIAN RATIO CALC 0.18 Normal <0.2 [facility] Comment on above: Result Comment: Neph rotic Syndrome is associated with ratios >3.5 Performed By: #### 2 731-8, 2777-1, UPCR, 36174-6, CBC, 66225-6, BMP #### [facility] ([id number]) [address], [address] [place] [address] URINE CREATININE,RDM 82.86 mg/dL Normal [facility] Comment on above: Performed By: #### 2 731-8, 2777-1, UPCR, 11609-7, CBC, 93628- 6, BMP #### [facility] ([id number]) [address], [address] [place] [address] Parathyrin.intact [Mass/Vol] on 06-05-2023 PTH INTACT 143 pg/mL High 12-88 [facility] Comment on above: Performed By: #### 2 731-8, 2777-1, UPCR, 30876-2, CBC, 67668- 6, BMP #### [facility] ([id number]) [address], [address] [place] [address] URINALYSISon 06-05-2023 Bilirubin Ql (U) Negative Normal NEG [facility] BLOOD/HGB Negative Normal NEG [facility] Color (U) YELLOW Normal YELLOW [facility] Glucose Ql (U) Negative Normal NEG [facility] Ketones Ql (U) Negative Normal NEG [facility] Leukocyte esterase Test strip Ql (U) Negative Normal NEG [facility] Nitrite Ql (U) Negative Normal NEG [facility] pH (U) 6.0 [pH] Normal 5.0-8.5 [facility] Protein Ql (U) Negative Normal NEG [facility] Specific gravity (U) [Rel density] 1.022 Normal 1.003-1.035 [facility] TURBIDITY CLEAR Normal CLEAR [facility] Urobilinogen (U) [Mass/Vol] mg/dL Normal <1.1 [facility] Vitamin D+Metabolites [Mass/ Vol]on 06-05-2023 VITAMIN D 25 HYD TOT 33.7 ng/mL Normal 30-100 [facility] Comment on above: Result Comment: Vitamin D status 25 [place] Vitamin D Deficiency <20 ng/mL Insufficiency 20-29 ng/mL Sufficiency 30-100 ng/mL Toxicity >100 ng/mL NOTE: A pediatric reference range has not been established by the help desk technician of this kit. The [employer] recommends a Vitamin D level of = or >20ng/mL in infants and children. 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 PROTOCOL: Standard. CONTRAST: None FINDINGS: Lung Bases: Visualized lung bases reveal some atelectatic changes in the lower lobes bilaterally. No pleural or pericardial effusion. Atherosclerotic calcifications in the thoracic aorta and the coronary arteries. No hiatal hernia ABDOMEN Limited evaluation of the abdominal viscera due to lack of intravenous contrast Liver: Liver is stable in size and morphology. There are multiple hypodense lobulated cystic lesions in the right and left hepatic lobes which are likely benign and represent simple cysts. These are however difficult to characterize without contrast. Dominant cystic lesion in the right lobe measures 6.4 x 5.8 cm on image 36 series 2, previously 5.2 x 5.6 cm. No intrahepatic biliary duct dilatation. No perihepatic ascites Biliary/Gallbladder: The gallbladder is distended with layering of punctate calcified stones in the dependent portion. No GB wall thickening or pericholecystic fluid.. The biliary tree is nondilated. Spleen: Spleen is normal in size and CT density. No obvious focal splenic lesions or perisplenic collections. Vascular calcifications in the splenic artery. Pancreas: Pancreas shows no discrete focal lesions or ductal dilatation. There are no peripancreatic inflammatory changes or fluid collections. Adrenals: Adrenal glands are unremarkable. Kidneys: Post right nephrectomy status. Irregular lobulated soft tissue with dystrophic calcifications and peripheral calcification in the right renal bed measures 2.2 x 3.4 cm in size on image 51 series 2. This could represent a focus of fat necrosis rather than residual neoplasm and previously measured 2.3 x 3.5 cm. No additional mass or fluid collections in the operative bed. Some bowel adhesions in the right retroperitoneum Left kidney shows no evidence of calculi or hydronephrosis. Lobulated outlines to the left kidney. A small exophytic cyst in the inferior pole left kidney measures up to 9 mm in size. This likely represents a simple cyst. Left ureter is nondilated. No perinephric collections on the left Retroperitoneal/Vasc ulature: Abdominal aorta and its branches are caliber with scattered atherosclerotic calcifications in the abdominal aorta and its branches. Iliac arteries are slightly tortuous. There are no discrete enlarged abdominal or retroperitoneal lymph nodes. No free fluid is noted within the abdomen or pelvis. There are no loculated collections or abscess. Symmetric fatty replacement in the right iliopsoas muscle. Some scarring along the right psoas muscle Gastrointestinal/Mes entery: Stomach is partly distended with oral contrast limiting detailed evaluation. No obvious hiatal hernia. Bowel adhesions in the central abdomen with some bowel adhesions in the right retroperitoneum likely postoperative. The small bowel loops are nonobstructed. No mesenteric mass or adenopathy is seen. Appendix: Appendix is within normal limits Fatty hypertrophy of the ileocecal valve Fecal residue is noted within the colonic loops limiting detailed evaluation. No gross colonic mass or paracolic inflammation is seen. There is left colonic and sigmoid diverticulosis without evidence to suggest acute diverticulitis. Colonic adhesions to the right renal bed. No gross free air or pneumatosis. Scarring in the midline ventral wall with diastasis of the rectus muscles PELVIS Bladder: The bladder is distended with no mass lesions or calculi. Bladder wall thickness is grossly normal Genital: Prostate is enlarged and indents on the bladder base with foci of calcifications. Seminal vesicles are symmetric. Punctate phleboliths in the pelvis. Atherosclerotic vascular calcifications in the pelvis. No enlarged pelvic or inguinal nodes by size criteria Some scarring in the midline ventral wall Bony Structures: Visualized bony structures are stable with degenerative changes in the visualized spine and the pelvic bones. Endplate degenerative changes are noted in the lumbar spine. Punctate sclerotic foci in the left iliac bone likely bone islands. Sclerotic focus in the posterior right acetabulum likely is benign and represents a bone island IMPRESSION: 1. Post right nephrectomy status. Lobulated soft tissue with internal coarse and peripheral calcifications in the right renal bed likely represents a focus of fat necrosis rather than a neoplastic recurrence. Continued follow-up is recommended to ensure stability/resolution 2. Small left lower pole simple renal cysts. 3. Multiple lobulated hepatic hypodensities in the right and left hepatic lobes likely sim (more content not included)... 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 Pleural Spaces: No pleural effusion. No pneumothorax. Mediastinum and Dania: Normal Cardiac silhouette and great vessels: Normal heart size. Unremarkable aorta. Chest Wall: Demonstrates prior anterior median sternotomy. 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 Pleural Spaces: No pleural effusion. No pneumothorax. Mediastinum and Dania: Normal Cardiac silhouette and great vessels: Normal heart size. Unremarkable aorta. Chest Wall: Demonstrates prior anterior median sternotomy. 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 Pleural Spaces: No pleural effusion. No pneumothorax. Mediastinum and Dania: Normal Cardiac silhouette and great vessels: Normal heart size. Unremarkable aorta. Chest Wall: Demonstrates prior anterior median sternotomy. IMPRESSION IMPRESSION: No acute cardiopulmonary disease [facility] Radiology Study observation (narrative) [facility] XR Chest PA and LateralOrder ed By: Viviana Day on 05-01-2023 [facility] Work Phone: CBC AUTO DIFFon 05-24-2022 BASO # 0.1 103/ul Normal 0.0-0.1 [facility] Comment on above: Performed By: #### C BC #### [facility] [address] [place] [address] Dr. Kyree Erickson Basophils/100 WBC (Bld) 1.2 % Normal 0.2-2.0 [facility] Comment on above: Performed By: #### C BC #### [facility] [address] [place] [address] Dr. Kyree Erickson EO # 0.2 103/ul Normal 0.0-0.7 [facility] Comment on above: Performed By: #### C BC #### [facility] [address] [place] [address] Dr. Kyree Erickson Eosinophils/100 WBC (Bld) 3.9 % Normal 0.9-7.0 [facility] Comment on above: Performed By: #### C BC #### [facility] [address] [place] [address] Dr. Kyree Erickson Erythrocyte distribution width (RBC) [Ratio] 22.2 % Critically high 11.0-15.0 [facility] Comment on above: Performed By: #### C BC #### [facility] [address] [place] [address] Dr. Kyree Erickson Hematocrit (Bld) [Volume fraction] 27.1 % Critically low 42.0-54.0 [facility] Comment on above: Performed By: #### C BC #### [facility] [address] [place] [address] Dr. Kyree Erickson Hemoglobin (Bld) [Mass/Vol] 7.9 g/dL Critically low 14.0-18.0 [facility] Comment on above: Performed By: #### C BC #### [facility] [address] [place] [address] Dr. Kyree Erickson IG # 0.02 10e3/ul Normal 0.00-0.03 [facility] Comment on above: Performed By: #### C BC #### [facility] [address] [place] [address] Dr. Kyree Erickson IG % 0.4 % Normal 0.0-0.5 [facility] Comment on above: Performed By: #### C BC #### [facility] [address] [place] [address] Dr. Kyree Erickson LYMPH # 0.7 103/ul Critically low 1.2-3.8 [facility] Comment on above: Performed By: #### C BC #### [facility] [address] [place] [address] Dr. Kyree Erickson Lymphocytes/100 WBC (Bld) 14.5 % Critically low 20.5-60.0 [facility] Comment on above: Performed By: #### C BC #### [facility] [address] [place] [address] Dr. Kyree Erickson MANUAL DIFF REQ NO Normal [facility] Comment on above: Performed By: #### C BC #### [facility] [address] [place] [address] Dr. Kryee Erickson MCH (RBC) [Entitic mass] 22.7 pg Critically low 25.9-34.0 [facility] Comment on above: Performed By: #### C BC #### [facility] [address] [place] [address] Dr. Kyree Erickson MCHC (RBC) [Mass/Vol] 29.2 g/dL Critically low 29.9-35.2 [facility] Comment on above: Performed By: #### C BC #### [facility] [address] [place] [address] Dr. Kyree Erickson MCV (RBC) [Entitic vol] 77.9 fL Critically low 80.0-94.0 [facility] Comment on above: Performed By: #### C BC #### [facility] [address] [place] [address] Dr. Kyree Erickson MONO # 0.4 103/ul Normal 0.3-0.8 [facility] Comment on above: Performed By: #### C BC #### [facility] [address] [place] [address] Dr. Kyree Erickson Monocytes/100 WBC (Bld) 8.0 % Normal 1.7-12.0 [facility] Comment on above: Performed By: #### C BC #### [facility] [address] [place] [address] Dr. Kyree Erickson NEUT # 3.5 103/ul Normal 1.4-6.5 [facility] Comment on above: Performed By: #### C BC #### [facility] [address] [place] [address] Dr. Kyree Erickson Neutrophils/100 WBC (Bld) 72.0 % Normal 43.0-75.0 [facility] Comment on above: Performed By: #### C BC #### [facility] [address] [place] [address] Dr. Kyree Erikcson Platelet mean volume (Bld) [Entitic vol] 8.6 fL Critically low 9.5-13.5 [facility] Comment on above: Performed By: #### C BC #### [facility] [address] [place] [address] Dr. Kyree Erickson PLT 292 103/ul Normal 150-450 [facility] Comment on above: Performed By: #### C BC #### [facility] [address] [place] [address] Dr. Kyree Erickson RBC 3.48 106/ul Critically low 4.70-6.10 [facility] Comment on above: Performed By: #### C BC #### [facility] [address] [place] [address] Dr. Kyree Erickson WBC 4.9 103/ul Normal 4.0-11.0 [facility] Comment on above: Performed By: #### C BC #### [facility] [address] [place] [address] Dr. Kyree Erickson PROF 14(COMP METB)on 023 Albumin [Mass/Vol] 2.7 g/dL Critically low 3.4-5.0 [facility] Comment on above: Performed By: #### C MP #### [facility] [address] [place] [address] Dr. Kyree Erickson Albumin/Globulin [Mass ratio] 0.7 {ratio} Normal [facility] Comment on above: Performed By: #### C MP #### [facility] [address] [place] [address] Dr. Kyree Erickson ALP [Catalytic activity/Vol] 71 U/L Normal 46-116 [facility] Comment on above: Performed By: #### C MP #### [facility] [address] [place] [address] Dr. Kyree Erickson ALT [Catalytic activity/Vol] 15 U/L Critically low 16-63 [facility] Comment on above: Performed By: #### C MP #### [facility] [address] [place] [address] Dr. Kyree Erickson Anion gap [Moles/Vol] 10.6 mmol/L Normal [facility] Comment on above: Performed By: #### C MP #### [facility] [address] [place] [address] Dr. Kyree Erickson AST [Catalytic activity/Vol] 22 U/L Normal 15-37 [facility] Comment on above: Performed By: #### C MP #### [facility] [address] [address] [address] Kyree Erickson Bilirubin [Mass/Vol] 0.6 mg/dL Normal 0.2-1.0 [facility] Comment on above: Performed By: #### C MP #### [facility] [address] [address] [address] Kyree Erickson Calcium [Mass/Vol] 8.7 mg/dL Normal 8.5-10.1 [facility] Comment on above: Performed By: #### C MP #### [facility] [address] [address] [address] Kyree Erickson Chloride [Moles/Vol] 102 mmol/L Normal 98-107 [facility] Comment on above: Performed By: #### C MP #### [facility] [address] [address] [address] Kyree Erickson CO2 [Moles/Vol] 32.7 mmol/L Critically high 21.0-32.0 [facility] Comment on above: Performed By: #### C MP #### [facility] [address] [place] [address] Dr. Kyree Erickson Creatinine [Mass/Vol] 1.66 mg/dL Critically high 0.70-1.30 [facility] Comment on above: Performed By: #### C MP #### [facility] [address] [address] [address] Kyree Erickson EGFR-AF BENINESE 49 mL/min/1.73m2 Critically low >=60 [facility] Comment on above: Performed By: #### C MP #### [facility] [address] [place] [address] Dr. Kyree Erickson EGFR-NON AF BENINESE 40 mL/min/1.73m2 Critically low >=60 [facility] Comment on above: Performed By: #### C MP #### [facility] [address] [place] [address] Dr. Kyree Erickson Globulin (S) [Mass/Vol] 4.1 g/dL Normal [facility] Comment on above: Performed By: #### C MP #### [facility] [address] [place] [address] Dr. Kyree Erickson Glucose [Mass/Vol] 129 mg/dL Critically high 74-106 [facility] Comment on above: Performed By: #### C MP #### [facility] [address] [place] [address] Dr. Kyree Erickson Potassium [Moles/Vol] 3.3 mmol/L Critically low 3.5-5.1 [facility] Comment on above: Performed By: #### C MP #### [facility] [address] [place] [address] Dr. Kyree Erickson Protein [Mass/Vol] 6.8 g/dL Normal 6.4-8.2 [facility] Comment on above: Performed By: #### C MP #### [facility] [address] [place] [address] Dr. Kyree Erickson Sodium [Moles/Vol] 142 mmol/L Normal 136-145 [facility] Comment on above: Performed By: #### C MP #### [facility] [address] [place] [address] Dr. Kyree Erickson Urea nitrogen [Mass/Vol] 16.0 mg/dL Normal 7.0-18.0 [facility] Comment on above: Performed By: #### C MP #### [facility] [address] [place] [address] Dr. Kyree Erickson Urea nitrogen/Creatinine [Mass ratio] 9.6 mg/mg Normal [facility] Comment on above: Performed By: #### C MP #### [facility] [address] [place] [address] Abdomen and Pelvison 12-26 IMPRESSION: 1. No evidence of metastatic disease. 2. Sclerotic foci in the pelvis, one of which has slowly increased in size since 2012. These are favored to be benign in etiology given the imaging appearance and lack of uptake on prior PET/CT. OLOGY EXAM: CT ABDOMEN/ABDOMEN-PELV IS (INTERPRETATION - OUTSIDE IMAGE), 01/03/2022 11:17 AM DATE- OUTSIDE STUDY PERFORMED: December 27, 2021. COMPARISON: CT abdomen and pelvis from May 03, 2021. 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 This report refers only to the anatomic area or body part in the study description, as requested. Study is of adequate quality. STUDY DESCRIPTION: CT abdomen and pelvis without contrast TECHNIQUE: CT images of the abdomen and pelvis were performed without the administration of intravenous contrast. FINDINGS: Lung Bases: The visualized lung bases and lower mediastinal structures are unremarkable. ABDOMEN The absence of intravenous contrast compromises evaluation of the solid abdominal viscera and vasculature. Liver: Liver is stable morphology with numerous cysts. No suspicious hepatic lesion.. No focal lesions. Biliary/Gallbladder: Cholelithiasis. No gallbladder wall thickening or pericholecystic fluid. The biliary tree is nondilated. Spleen: Spleen is normal in size and CT density. Pancreas: Pancreas is normal. There is no evidence of pancreatic mass or peripancreatic fluid. Adrenals: Normal right adrenal gland. terminal operator stable left adrenal nodule, most likely a benign adenoma. Kidneys: Right nephrectomy. Stable fat necrosis in the nephrectomy bed. Left kidney is normal. Retroperitoneal/Vasc ulature: No retroperitoneal adenopathy is identified. Stable saccular ectasia in the infrarenal abdominal aorta, measuring up to 2.8 cm. Moderate to severe atherosclerosis of the abdominal aorta. Gastrointestinal/Mes entery: The bowel loops are non-dilated without wall thickening or mass. Colonic diverticulosis. Normal appendix. No pneumatosis, free air, or portal venous gas. No ascites or loculated fluid collection. PELVIS Bladder: The bladder is normal. Genital: Prostate is mildly enlarged. Seminal vesicles are symmetric. Bony Structures: No aggressive osseous lesion. Degenerative changes of the spine and pelvis. Sclerotic foci in the pelvis have been present since 2013 and had no uptake on prior PET/CT. The largest sclerotic focus in the right posterior acetabulum measures 1.3 cm (axial image 72). This is stable compared to most recent exam but has slowly enlarged since 2013 when it measured 0.8 cm. RADIOLOGY Hien Saini MD - 01/08/2022 EXAM: CT ABDOMEN/ABDOMEN-PELV IS (INTERPRETATION - OUTSIDE IMAGE), 01/03/2022 11:17 AM DATE- OUTSIDE STUDY PERFORMED: December 27, 2021. COMPARISON: CT abdomen and pelvis from May 03, 2021. 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 This report refers only to the anatomic area or body part in the study description, as requested. Study is of adequate quality. STUDY DESCRIPTION: CT abdomen and pelvis without contrast TECHNIQUE: CT images of the abdomen and pelvis were performed without the administration of intravenous contrast. FINDINGS: Lung Bases: The visualized lung bases and lower mediastinal structures are unremarkable. ABDOMEN The absence of intravenous contrast compromises evaluation of the solid abdominal viscera and vasculature. Liver: Liver is stable morphology with numerous cysts. No suspicious hepatic lesion.. No focal lesions. Biliary/Gallbladder: Cholelithiasis. No gallbladder wall thickening or pericholecystic fluid. The biliary tree is nondilated. Spleen: Spleen is normal in size and CT density. Pancreas: Pancreas is normal. There is no evidence of pancreatic mass or peripancreatic fluid. Adrenals: Normal right adrenal gland. long-term stable left adrenal nodule, most likely a benign adenoma. Kidneys: Right nephrectomy. Stable fat necrosis in the nephrectomy bed. Left kidney is normal. Retroperitoneal/Vasc ulature: No retroperitoneal adenopathy is identified. Stable saccular ectasia in the infrarenal abdominal aorta, measuring up to 2.8 cm. Moderate to severe atherosclerosis of the abdominal aorta. Gastrointestinal/Mes entery: The bowel loops are non-dilated without wall thickening or mass. Colonic diverticulosis. Normal appendix. No pneumatosis, free air, or portal venous gas. No ascites or loculated fluid collection. PELVIS Bladder: The bladder is normal. Genital: Prostate is mildly enlarged. Seminal vesicles are symmetric. Bony Structures: No aggressive osseous lesion. Degenerative changes of the spine and pelvis. Sclerotic foci in the pelvis have been present since 2012 and had no uptake on prior PET/CT. The largest sclerotic focus in the right posterior acetabulum measures 1.3 cm (axial image 72). This is stable compared to most recent exam but has slowly enlarged since 2013 when it measured 0.8 cm. IMPRESSION IMPRESSION: 1. No evidence of metastatic disease. 2. Sclerotic foci in the pelvis, one of which has slowly increased in size since 2013. These are favored to be benign in etiology given the imaging appearance and lack of uptake on prior PET/CT. [facility] CT Abdomen and PelvisOrdered By: Hien Saini on 01-08-2022 [facility] Work Phone: CT Abdomen and Pelvison Radiology Study observation (narrative) [facility] Coding Summary.on 04-15-2020 Coding Summary. CODING DATE: 04/15/2020 FINAL [facility] STATUS: Home (Routine DC) PAYOR: Medicare APC DESCRIPTION 5521 Level 1 Imaging without Contrast ADMIT DX: REASON FOR VISIT DX: R07.81 Pleurodynia FINAL DX: PRINCIPAL: R07.81 Pleurodynia SECONDARY: Z20.822 Contact with and (suspected) exposure to COVID19 PYMT PROC APC STAT DESCRIPTION DOCTOR NAME DATE NOTE: The code number assigned matches the documented diagnosis and / or procedure in the patient's chart. However, the narrative phrase printed from the coding software may appear abbreviated, or result in slightly different terminology. Coded By: Chio Lopez Date Saved: 04/15/2020 07:25 pm [facility] Consent for Treatmenton 03-28 Consent for Treatment [id number] #1.00CD:127 Normal [facility] Physician Orderon 04-08-2020 Physician Order [id number] #1.00CD:127 [facility] Physician Order [id number]# 1.00CD:127 [facility] Physician Order [id number] #1.00CD:127 Normal [facility] Rapid COVID Antigen ([facility])on 04-08-2020 Rapid COV Int NEG Ctl Pass Normal [facility] Comment on above: Performed By: #### 2 [id number] #### [facility] [address] [place] [address] Rapid COV Int POS Ctl Pass Normal [facility] Comment on above: Performed By: #### 2 [id number] #### [facility] [address] [place] [address] Rapid COVID Ag Not Detected Normal Not Detected [facility] Comment on above: Result Comment: The [employer] System for Rapid Detection of SARS-CoV-2 is a chromatographic digital immunoassay intended for the direct and qualitative detection of SARS-CoV-2 nucleocapsid antigens in nasal swabs from individuals who are suspected of COVID-19 by their healthcare provider within the first five days of the onset of symptoms. Negative results should be treated as presumptive, do not rule out SARS-CoV-2 infection and should not be used as the sole basis for treatment or patient management decisions, including infection control decisions. Negative results should be considered in the context of a patient?s recent exposures, history and the presence of clinical signs and symptoms consistent with COVID-19, and confirmed with a molecular assay, if necessary, for patient management. For in vitro diagnostic use. In the [facility], only for use under an Emergency Use Authorization. In the [place], this test has not been FDA cleared or approved; this test has been authorized by FDA under an EUA for use by authorized laboratories; use by laboratories certified under the CLIA, 42 U.S.C. ?263a, that meet requirements to perform moderate, high, or waived complexity tests and at the Point of Care (POC), i.e., in patient care settings operating under a CLIA Certificate of Waiver, Certificate of Compliance, or Certificate of Accreditation. This test has been authorized only for the detection of proteins from SARS-CoV-2, not for any other viruses or pathogens; and, in the [place], this test is only authorized for the duration of the declaration that circumstances exist justifying the authorization of emergency use of in vitro diagnostics for detection and/or diagnosis of the virus that causes COVID-19 under Section 564(b)(1) of the Act, 21 U.S.C. ? 360bbb-3(b)(1), unless the authorization is terminated or revoked sooner. Performed By: #### 2 [id number] #### [facility] [address] [place] [address] Employed in Healthcare Unknown Normal [facility] Comment on above: Performed By: #### 2 [id number] #### [facility] [address] [place] [address] First Test Unknown Normal [facility] Comment on above: Performed By: #### 2 [id number] #### [facility] [address] [place] [address] Hospitalized? NO Normal [facility] Comment on above: Performed By: #### 2 [id number] #### [facility] [address] [place] [address] ICU NO Normal [facility] Comment on above: Performed By: #### 2 [id number] #### [facility] [address] [place] [address] ? NO Normal [facility] Comment on above: Performed By: #### 2 [id number] #### [facility] [address] [place] [address] Resides in a Congregate Care Setting Unknown Normal [facility] Comment on above: Performed By: #### 2 [id number] #### [facility] [address] [place] [address] Symptomatic as defined by [facility] YES Normal [facility] Comment on above: Performed By: #### 2 [id number] #### [facility] [address] [place] [address] XR Chest 2 Viewson 1 XR Chest 2 Views Exam Date/Time: 04/08/2020 13:06 EST Reason for Exam: Pleurodynia Report IMPRESSION: NO EVIDENCE OF ACTIVE CARDIOPULMONARY DISEASE. EXAM: XR Chest 2 Views DATE: 04/08/2020 CLINICAL HISTORY: Pleurodynia. COMPARISON: None available. TECHNIQUE: Upright PA and lateral radiographs of the chest were obtained. FINDINGS: There is no significant infiltrate, pleural effusion, vascular congestion, pneumothorax or displaced fractures identified. 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 An approximately 5 mm dense nodule overlying the superior aspect of the left ninth rib anterolaterally is probably a bone island or calcified granuloma. FINAL REPORT Dictated: 04/08/2020 2:07 pm Anthony Aldrich MD Signed (Electronic Signature): 04/08/2020 2:07 pm Signed by: Anthony Aldrich MD Transcribed by: MEET Technologist: XU [place] [facility] CT Maxillofacial w/o Contras ton 10-15-2019 CT Maxillofacial w/o Contrast Exam Date/Time: 10/14/2019 09:03 EDT Reason for Exam: Chronic pansinusitis Report IMPRESSION: BILATERAL MAXILLARY SINUSITIS EXAM: CT Maxillofacial w/o Contrast CLINICAL HISTORY: Headache Chronic pansinusitis COMPARISON: NONE. TECHNIQUE: Unenhanced images were obtained through the paranasal sinuses in the axial plane with coronal and sagittal reformats. Scans providing interoperative image guidance. FINDINGS: Maxillary sinuses:Polypoid mucosal changes along the cox of the right and left maxillary sinuses striking along the floors. There is mild infundibular narrowing bilaterally with patent maxillary sinus outflow tracts. Ethmoid sinuses: Ethmoid sinuses are clear. Sphenoid sinuses: The sphenoid sinuses are normally aerated. Sphenoethmoid recesses are patent. Frontal sinuses: Hypoplastic frontal sinuses. Nasal fossa: Slight anterior septal deviation toward the left with nasal spine/mucosal abutting the left middle nasal turbinate. All CT scans at this facility use dose modulation, iterative reconstruction, and/or weight based dosing when appropriate to reduce radiation dose to as low as reasonably achievable. FINAL REPORT Dictated: 10/15/2019 11:25 am Jonh Ambrosio MD Signed (Electronic Signature): 10/15/2019 11:25 am Signed by: Jonh Ambrosio MD Transcribed by: MEET Technologist: MARY JO [facility] Coding Summary.on 10-15-2019 Coding Summary. CODING DATE: 10/15/2019 FINAL [facility] STATUS: Home (Routine DC) PAYOR: Medicare APC DESCRIPTION 5522 Level 2 Imaging without Contrast ADMIT DX: REASON FOR VISIT DX: J32.4 Chronic pansinusitis FINAL DX: PRINCIPAL: J32.4 Chronic pansinusitis SECONDARY: J32.0 Chronic maxillary sinusitis PYMT PROC APC STAT DESCRIPTION DOCTOR NAME DATE NOTE: The code number assigned matches the documented diagnosis and / or procedure in the patient's chart. However, the narrative phrase printed from the coding software may appear abbreviated, or result in slightly different terminology. Coded By: Hilda Sevilla CphT Date Saved: 10/15/2019 03:03 pm [facility] Consent for Treatmenton 09-25 Consent for Treatment [id number] #[id number]:127 [facility] Physician Orderon 09-16-2019 Physician Order [id number]# 1.00CD:127 [facility] Vital Signs Date Time Vital Sign Value Performing Clinician Facility 06-01-2023 10:17040 Body height 180.34 cm [facility] 06-01-2023 10:170400 Body mass index (BMI) [Ratio] 29.7 kg/m2 [facility] 06-01-2023 10:17-0400 Body temperature 98.8 [degF] [facility] 06-01-2023 10:17-0400 Body weight 96.78 kg [facility] 06-01-2023 10:17-0400 Diastolic blood pressure 74 mm[Hg] [facility] 06-01-2023 10:17-0400 Heart rate 100 /min [facility] 06-01-2023 10:17-0400 Respiratory rate 16 /min [facility] 06-01-2023 10:17-0400 SaO2% (BldA) [Mass fraction] 94 % [facility] 06-01-2023 10:17-0400 Systolic blood pressure 151 mm[Hg] [facility] 05-07-2023 11:19-0400 Body height 180.3 cm Reinaldo Warner MD Work Phone: [facility] 05-07-2023 11:19-0400 Body mass index (BMI) [Ratio] 29.41 kg/m2 Reinaldo Warner MD Work Phone: [facility] 05-07-2023 11:19-0400 Body weight 95.62 kg Reinaldo Warner MD Work Phone: [facility] 05-07-2023 11:19-0400 Diastolic blood pressure 64 mm[Hg] Reinaldo Warner MD Work Phone: [facility] 05-07-2023 11:190400 Heart rate 96 /min Reinaldo Warner MD Work Phone: [facility] 05-07-2023 11:19-0400 SaO2% (BldA) [Mass fraction] 95 % Reinaldo Warner MD Work Phone: [facility] 05-07-2023 11:19-0400 Systolic blood pressure 126 mm[Hg] Reinaldo Warner MD Work Phone: [facility] 05-01-2023 12:21-0500 Body mass index (BMI) [Ratio] 29.32 kg/m2 Heavenly Frank [employer] Work Phone: [facility] 05-01-2023 12:21-0500 Body temperature 98.49 [degF] Heavenly Frank [employer]GETABLE [employer] Work Phone: [facility] 05-01-2023 12:21-0500 Body weight 95.35 kg Heavenly Frank [employer]GETABLE [employer] Work Phone: [facility] 05-01-2023 12:21-0500 Diastolic blood pressure 80 mm[Hg] Heavenly Frank [employer]GETABLE [employer] Work Phone: [facility] 05-01-2023 12:21-0500 Heart rate 85 /min Heavenly Frank [employer]GETABLE [employer] Work Phone: [facility] 05-01-2023 12:21-0500 Respiratory rate 16 /min Heavenly Silas [employer]GETABLE [employer] Work Phone: [facility] 05-01-2023 12:21-0500 SaO2% (BldA) [Mass fraction] 95 % Heavenly Silas [employer]GETABLE [employer] Work Phone: [facility] 05-01-2023 12:21-0500 Systolic blood pressure 138 mm[Hg] Heavenly Silas [employer]GETABLE [employer] Work Phone: [facility] 04-02-2023 16:01-0500 Body height 180.3 cm Rebeca Ricks MD Work Phone: [facility] 04-02-2023 16:01-0500 Body mass index (BMI) [Ratio] 29.53 kg/m2 Rebeca Ricks MD Work Phone: [facility] 04-02-2023 16:01-0500 Body weight 96.03 kg Rebeca Ricks MD Work Phone: [facility] 04-02-2023 16:01-0500 Diastolic blood pressure 67 mm[Hg] Rebeca Ricks MD Work Phone: [facility] 04-02-2023 16:01-0500 Heart rate 73 /min Rebeca Ricks MD Work Phone: [facility] 04-02-2023 16:01-0500 SaO2% (BldA) [Mass fraction] 97 % Rebeca Ricks MD Work Phone: [facility] 04-02-2023 16:01-0500 Systolic blood pressure 126 mm[Hg] Rebeca Ricks MD Work Phone: [facility] Encounters Encounter Date Encounter Type Care Provider Facility Start: 06-05-2023 End: 06-05-[address] [facility] Start: 06-05-2023 End: 06-06-[address] [facility] Start: 06-01-2023 End: 06-01-2023 ambulatory [facility] Work Phone: Start: 06-01-2023 End: 06-01-2023 Patient encounter procedure [facility] Work Phone: Start: 05-07-2023 End: 05-07-[address] [facility] Start: 05-07-2023 End: 05-07-2023 Office outpatient visit 15 minutes Reinaldo Warner MD Work Phone: [facility] Comment on above: Coronary artery dise ase involving [place]qug[place] coronary artery of [place] heart without angina pectoris (Primary Dx); Essential hypertension; Mixed hyperlipidemia Start: 05-06-2023 Telephone encounter [facility] Start: 05-01-2023 ambulatory JAVIER CALLOWAY Facil ity:JS Start: 05-01-2023 End: 05-01-2023 Office outpatient visit 15 minutes Javier Calloway MD Work Phone: Division of Surgical Oncology Comment on above: Liposarcoma (Primary Dx) Start: 05-01-2023 ambulatory DEVAUGHN DEFRANCE Facility :JS Start: 05-01-2023 End: 05-01-2023 Subsequent hospital visit by physician Javier Calloway MD Work Phone: [facility] Comment on above: Arrived Start: 04-17-2023 Refill [facility]iong [facility] Start: 04-12-2023 Refill Gloria Xiong [facility] Start: 04-02-2023 End: 04-02-2023 ambulatory [facility] Start: 04-02-2023 End: 04-02-2023 Office outpatient visit 25 minutes Rebeca Ricks MD Work Phone: [facility] Comment on above: Chronic insomnia (Pr imary Dx); Obstructive sleep apnea; Alcohol use Start: 03-25-2023 Refill [facility] Start: 03-04-2023 Refill [facility] Start: 02-26-2023 Refill Briannafernandez Griffin LEANDRA [facility] Start: 05-24-2022 End: 05-25-[address] [facility] Facility: Start: 01-03-2022 End: 01-03-2022 [facility] Scan So Outside Imaging Second Opinion Start: 05-14-2017 Patient encounter status Brianna Sagastume laila MOBLEY [facility] Work Phone: Procedures Date Procedure Procedure Detail Performing Clinician Start: 05-07-2023 Follow-up visit Follow-up REINALDO WARNER Start: 05-01-2023 Follow-up visit Follow-up JAVIER CALLOWAY Start: 05-01-2023 Radiologic exam ches t 2 views Heavenly [employer] Work Phone: Start: 01-24-2023 Adult depression screening assessment Brianna Griffin LEANDRA Start: 01-03-2022 Ct abdomen & pelvis w/o contrast material Heavenly Ulloa [employer] Work Phone: Start: 07-08-2020 History of placement of stent for coronary artery disease H/O heart artery stent Brianna Griffin LEANDRA Start: 01-09-2019 Colonoscopy Brianna hale LEANDRA Start: 05-09-2017 History of coronary artery bypass grafting Hx of CABG [facility] Imaging Ct Scan So Plan of Treatment Date Care Activity Detail Author Start: 05-06-2024 Tobacco Screening Tobacco Screening [facility] Start: 04-02-2024 Adult BMI Screening Adult BMI Screen ing [facility] Start: 04-02-2024 Tobacco Screening Tobacco Screening [facility] Start: 01-28-2024 End: 01-28-2024 Patient encounter procedure 01/28/2024 8:15 AM EST Office Visit [facility] [address] [place] [address] Devaughn Martinez MD [address] [place] [address] [facility] Start: 01-25-2024 Adult BMI Screening Adult BMI Screen ing [facility] Start: 01-25-2024 Depression Screening Depression Scre ening [facility] Start: 01-25-2024 Fall Risk Screening Fall Risk Screen ing [facility] Start: 01-25-2024 Medicare Annual Wellness Visit Medicare Annual Wellness Visit [facility] Start: 01-25-2024 Tobacco Screening Tobacco Screening [facility] Start: 08-05-2023 End: 08-05-2023 Patient encounter procedure 08/05/2023 9:00 AM EDT Office Visit [facility] [address] [place] [phone] Emily Connell MD [address] [place] [address] [facility] Start: 07-24-2023 End: 07-24-2023 Patient encounter procedure 07/24/2023 8:45 AM EDT Office Visit [facility] [address] [place] [phone] Devaughn Martinez MD [address] [place], [place] [phone] [facility] Start: 06-27-2023 End: 06-27-2023 Patient encounter procedure 06/27/2023 1:00 PM EDT Office Visit [facility] [address] [place] [phone] Trae Walsh MD [address] [facility] [address] [place] [phone] N [facility] Start: 06-13-2023 Adult BMI Follow Up Plan Adult BMI Follow Up Plan [facility] Start: 05-07-2023 End: 05-07-2023 Patient encounter procedure 05/07/2023 11:30 AM EDT Office Visit [facility] [address] [place] [id number] Reinaldo Warner MD [address] [place], [place] [id number] [facility] Start: 04-09-2023 End: 04-09-2023 Patient encounter procedure 04/09/2023 9:30 AM EST Office Visit [facility] [address] [place] [address] Rebeca Ricks MD [address] [facility] [address] [place] [address] [facility] Start: 04-02-2023 End: 04-02-2023 Patient encounter procedure 04/02/2023 4:00 PM EST Office Visit [facility] [address] [address] Rebeca Ricks MD [address] [facility] [address] [place] [address] [facility] Start: 01-17-2023 COVID-19 Vaccine ( season) COVID-19 Vaccine ( season) [facility] Start: 10-26-2022 COVID-19 VACCINE ( season) COVID-19 VACCINE ( season) [facility] Start: 10-26-2022 Influenza vaccination INFLUENZA VACC INE (#1) [facility] Start: 01-09-2022 Screening for malign ant neoplasm of colon Colonoscopy [facility] Start: 08-24-1993 Zoster vaccine hzv l debbi for subcutaneous use ZOSTER (SHINGLES) VACCINE (1 of 2) [facility] Start: 08-24-1988 Screening for malign ant neoplasm of colon COLORECTAL CANCER SCREENING DISCUSSION [facility] Start: 08-24-1962 DTaP,Tdap and Td Vaccines (1 - Tdap) DTaP,Tdap and Td Vaccines (1 - Tdap) [facility] Start: 08-24-1962 Third diphtheria, tetanus and acellular pertussis (DTaP) vaccination TDAP (ADULT) [facility] Start: 1945 Hepatitis C screening HEPATITI S C VIRUS SCREENING [facility] Start: 1945 Tetanus vaccination TETANUS [facility] End: 05-01-2023 CT Abdomen and Pelvis WO contrast [facility] Work Phone: Comment on above: 1 Occurrences starti ng 05/01/2023 until 05/01/2023 Immunizations Immunization Date Immunization Notes Care Provider Autumn sharp 11-22-2022 Covid-19,mrna, Lnp-s , Pf, 50mcg/0.5ml 12+ Brianna Gaby [facility] 11-22-2022 Influenza, High-dose , Quadrivalent Brianna Gaby [facility] 06-14-2022 zoster vaccine recombinant Brianna Gaby [facility] 04-10-2022 zoster vaccine recombinant Brianna Gaby [facility] 12-04-2021 Influenza, High-dose , Quadrivalent Brianna Gaby [facility] 12-04-2021 influenza virus vacc ine, unspecified formulation [facility] Outside Imaging Ct Scan So [facility] 10-04-2021 COVID-19, mRNA, LNP- S, PF, 100mcg/0.5mL Dose Brianna Gaby [facility] 12-20-2020 COVID-19 monovalent vaccine (Moderna), 12yr+, 100mcg/0.5mL [facility] Outside [facility] Ct Scan So [facility] 12-02-2020 Influenza, High-dose , Quadrivalent Brianna Gaby [facility] 04-18-2020 COVID-19 monovalent vaccine (Moderna), 12yr+, 100mcg/0.5mL [facility] Outside Imaging Ct Scan So [facility] 03-21-2020 COVID-19 monovalent vaccine (Moderna), 12yr+, 100mcg/0.5mL [facility] Imaging Ct Scan So [facility] 12-30-2019 influenza, high dose seasonal, preservative-free Brianna Gaby [facility] 12-03-2019 Influenza Vaccine, Quadrivalent, Adjuvanted Brianna Gaby [facility] 11-25-2019 influenza, seasonal, injectable Brianna Gaby [facility] 11-28-2018 influenza, high dose seasonal, preservative-free Brianna Gaby [facility] 12-18-2016 influenza, injectabl e, quadrivalent, preservative free Brianna [facility] 12-18-2016 pneumococcal conjuga te vaccine, 13 valent Brainna [facility] 11-10-2014 pneumococcal polysaccharide vaccine, 23 valent Brianna [facility] 12-09-2012 influenza virus vacc ine, whole virus [facility] Outside Imaging Ct Scan So [facility] Payers Date Payer Category Payer Medicare [id number] 2008 Unknown [id number] 2008 Unknown [id number] 1959 Medicare [id number] 1959 Unknown [id number] 1943 Unknown [id number] 2.16.84 [id number] 1943 Unknown [id number] 2.16. [id number] 1943 Unknown [id number] 2.16. [id number] 1943 Unknown [id number] 2.16. [id number] 1943 Unknown [id number] 2.16.8 [id number] 1943 Unknown [id number] 2.16.8 [id number] 1943 Unknown [id number] 2.16.8 [id number] 1943 Unknown [id number] 2.16.8 [id number] Social History Date Type Detail Facility Start: 05-09-2017 End: 06-01-2023 Tobacco smoking status NHIS Ex-smoker [facility] Start: 03-18-1954 End: 03-18-1979 History of tobacco use Current smoker [facility] Start: 03-18-1954 End: 03-18-1979 History of tobacco use Cigarette Smoker [facility] Start: 03-18-1954 End: 03-18-1979 History of tobacco use Pipe Smoker [facility] Start: 03-18-1954 End: 03-18-1979 History of tobacco use Cigar Smoker [facility] Start: 05-09-2017 End: 10-10-2020 Cigarettes smoked current (pack per day) - Reported 1 [facility] Start: 05-09-2017 End: 12-19-2021 Tobacco use and exposure Smokeless tobacco non-user [facility] Start: 05-03-2021 End: 05-07-2023 Alcohol intake Current drinker of alcohol (finding) [facility] Start: 10-10-2020 End: 05-03-2021 Tobacco use panel [facility] Adolescent depressio n screening assessment 1 [facility] Start: 05-09-2017 Alcohol Comment 2-3 beers per week [facility] Start: 1945 Sex Assigned At Not on file [facility] Start: 07-09-2020 Gender identity Identifies as male gender (finding) [facility] Do you belong to any clubs or organizations such as episcopal groups, unions, fraternal or athletic groups, or school groups? No [facility] Are you now , , , , never or living with a partner? [facility] How often to you hav e a drink containing alcohol? 2-3 time sa week [facility] How many standard dr inks containing alcohol do you have on a typical day? 1 or 2 [facility] How often do you hav e 6 or more drinks on 1 occasion? Less than monthly [facility] Do you feel stress - tense, restless, nervous, or anxious, or unable to sleep at night because your mind is troubled all the time - these days [OSQ] To some extent [facility] Start: 10-10-2020 Education 17 [facility] Start: 1945 Sex Assigned At Male [facility] Start: 07-09-2020 Sexual orientation Heterosexual (finding) [facility] Medical Equipment Procedure Code Equipment Code Equipment Origin al Text Equipment Identifier Dates Stent Uret Inlay [id number] - [id number] Start: 05-28-2017 Carlos Xience Sierr a 4x12 Rx - [id number] - [id number]_[facility] Start: 06-29-2020 Clinical Notes 02-26-2023 to 05-07-2023 Reinaldo Warner MD - 05/07/2023 11:30 AM EDTTelephone Encounter - Gloria Xiong CMA - 05/06/2023 9:41 AM EDTTelephone Encounter - Gloria Xiong CMA - 05/06/2023 9:41 AM EDTPatient Instructions Note Date & Type Note Facility 05-07-2023 History of Presen t illness Narrative Crystal King Jr. Date of visit: 05/07/2023 Date of : 1945 Age: 77 y.o. 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[facility]) Hyperkalemia Encounter for pre-operative cardiovascular clearance Kidney stone Gallstone Hx of CABG Recurrent depressive disorder, current episode mild ([facility] [place]) Personal history of sarcoma of soft tissue Encounter for colonoscopy due to history of adenomatous colonic polyps Adenomatous polyp of transverse colon Diverticulosis large intestine w/o perforation or abscess w/o bleeding CKD (chronic kidney disease), stage III ([facility] [place]) Solitary kidney Dyspnea on exertion CAD in iqugmiut artery H/O heart artery stent Abnormal stress test Neuralgia of thigh, right MIKE (obstructive sleep apnea) Meralgia paresthetica of right side Lumbar and sacral spondyloarthritis Allergies Allergen Reactions Amoxicillin Cefzil [Cefprozil] Doxycycline Rosacea Suprax [Cefixime] Current Outpatient Medications Medication Sig Dispense Refill allopurinoL (ZYLOPRIM) 300 mg tablet Take 1 tablet (300 mg total) by mouth in the morning. 90 tablet 3 amLODIPine-benazepril (LOTREL) 5-20 mg per capsule Take 1 capsule by mouth in the morning. 90 capsule 3 aspirin 81 mg Take 1 tablet (81 mg total) by mouth in the morning. colchicine (COLCRYS) 0.6 mg tablet Take 1 tablet (0.6 mg total) by mouth every other day. 45 tablet 1 DULoxetine (CYMBALTA) 30 mg capsule Take 1 capsule (30 mg total) by mouth in the morning. 90 capsule 3 fluticasone propionate (FLONASE) 50 mcg/actuation nasal spray [place] one puff in each nostril daily 16 g 5 ipratropium (ATROVENT) 42 mcg (0.06 %) nasal spray Administer 2 sprays into each nostril in the morning. magnesium glycinate 100 mg tablet Take 1 tablet (100 mg total) by mouth nightly. 30 tablet 5 nitroglycerin (NITROSTAT) 0.[address] 1 tablet (0.4 mg total) under the tongue every 5 (five) minutes as needed for chest pain. 25 tablet 5 POLYETHYLENE GLYCOL 3350 (MIRALAX ORAL) Take 17 g by mouth every other day. simvastatin (ZOCOR) 10 mg tablet Take 1 tablet (10 mg total) by mouth nightly. 90 tablet 1 tadalafiL (CIALIS) 10 MG tablet Take 1 tablet (10 mg total) by mouth daily as needed for erectile dysfunction. 10 tablet 5 triamcinolone (KENALOG) 0.1 % cream Apply 1 Application topically daily as needed. wheat dextrin 3 gram/3.5 gram powder as directed Orally zinc 50 mg tablet tablet Take 1 tablet (50 mg total) by mouth in the morning. No current facility-administered medications for this visit. Chief Complaint Patient presents with Follow-up 1yr f/u - l/s TLM - no defib or pm - no hosp stays - no covid - testing and labs ordered - [facility] w/ pt's History of Present Illness Crystal King Jr. is a 77 y.o. year old male that presents today for a follow up on CAD and hypertension. Patient denies any concerns from a cardiac standpoint. He has been trying to remain active. He has difficulty going to sleep in the evening and was started on Magnesium to help encourage better sleeping habits. He is no longer following with oncology after his most recent oncology appointment. He has been in remission for 11 years and was informed that it was very unlikely that his sarcoma would return at this stage. Patient is doing well. Patient denies any chest pains, palpitations, dizziness, shortness of breath, syncope, or syncopal episodes. Past Medical History: Diagnosis Date Anxiety Cancer ([facility]) Cataracts, bilateral Depression Fatigue Gallstone Hearing loss Hemorrhoids Hyperlipidemia Hypertension Kidney stone Kidney stone 2018 Pneumonia Single kidney Sleep apnea Vision problems No data recorded No data recorded No data recorded Past Surgical History: Procedure Laterality Date Cardiac catheterization - CORS + GRAFT (81961) Left 09/18/2021 Performed by Reinaldo Warner MD at [facility] CARD[facility] COLONOSCOPY N/A 01/09/2019 Performed by Cabrera Sanchez MD at [facility] Coronary angiogram and graft/iqugmiut N/A 06/29/2020 Performed by Reinaldo Warner MD at [facility] CARDIAC MATERIAL LO[employer] CORONARY ARTERY BYPASS GRAFT N/A 04/1999 [facility] Coronary fractional flow reserve N/A 09/18/2021 Performed by Reinaldo Warner MD at [facility] [employer] MATERIAL [employer] Coronary fractional flow reserve N/A 06/29/2020 Performed by Reinaldo Warner MD at [facility] CARDIAC MATERIAL [employer] Intravascular pressure measurement first vessel each additional vessel (fractional flow reserve) N/A 09/18/2021 Performed by Reinaldo Warner MD at [facility] CARDIAC MATERIAL LO[employer] MAXILLARY ANTROSTOMY Bilateral 12/22/2019 Dr. Nelly Mathias NEPHRECTOMY Right 2013 [facility] in [facility] SEPTOPLASTY Bilateral 12/22/2019 Dr. Nelly Man [place], [place] SKIN BIOPSY 2018 [facility] Stent drug-eluting left main N/A 06/29/2020 Performed by Reinaldo Warner MD at [facility] CARDIAC MATERIAL LO[employer]ER TONSILLECTOMY AND ADENOIDECTOMY Bilateral 1951 Family History Problem Relation Age of Onset Diabetes Brother Type 2 Cancer Brother Diabetes Maternal Grandmother Type 2 Depression Maternal Grandmother Ovarian cancer Maternal Grandmother Diabetes Paternal Grandmother Type 2 Depression Paternal Grandmother Mental illness Paternal Grandmother Early Mother Cancer Father Depression Father Cancer Sister Depression Paternal Uncle Alcohol abuse Paternal Grandfather Social History Socioeconomic History Marital status: Spouse name: Not on file Number of children: Not on file Years of education: Not on file Highest education level: Bachelor's degree (e.g., BA, AB, BS) Occupational History Not on file Tobacco Use Smoking status: Former Packs/day: 1.00 Years: 20.00 Additional pack years: 0.00 Total pack years: 20.00 Types: Cigarettes Quit date: 1979 Years since quittin.2 Smokeless tobacco: Never Vaping Use Vaping Use: Never used Substance and Sexual Activity Alcohol use: Yes Alcohol/week: 7.0 standard drinks of alcohol Types: 7 Cans of beer per week Drug use: No Sexual activity: Defer Partners: Female Other Topics Concern Caffeine Use No Coffee Not Asked Tea Not Asked Carbonated Beverages Not Asked Chocolate Not Asked Social History Narrative Not on file Social Determinants of Health Financial Resource Strain: Low Risk (10/10/2020) Overall Financial Resource Strain (CARDIA) Difficulty of Paying Living Expenses: Not hard at all Food Insecurity: No Food Insecurity (01/24/2023) Hunger Screening Food Insecurity - Worry: Never True Food Insecurity - Inability: Never True Transportation Needs: No Transportation Needs (10/10/2020) PRAPARE - Transportation Lack of Transportation (Medical): No Lack of Transportation (Non-Medical): No Physical Activity: Insufficiently Active (10/10/2020) Exercise Vital Sign Days of Exercise per Week: 3 days Minutes of Exercise per Session: 30 min Stress: Stress Concern Present (10/10/2020) [place] [employer] - Occupational Stress Questionnaire Feeling of Stress : To some extent Social Connections: Moderately Integrated (10/10/2020) Social Connection and Isolation Panel [NHANES] Frequency of Communication with Friends and Family: Twice a week Frequency of Social Gatherings with Friends and Family: Twice a week Attends Orthodoxy Services: More than 4 times per year Active Member of Clubs or Organizations: No Attends Club or Organization Meetings: Never Marital Status: Interpersonal Safety: Not At Risk (10/10/2020) Humiliation, Afraid, Rape, and Kick questionnaire Fear of Current or Ex-Partner: No Emotionally Abused: No Physically Abused: No Sexually Abused: No Housing Instability: Not on file Review of Systems Review of Systems Constitutional: Positive for malaise/fatigue. HENT: Negative for nosebleeds. Respiratory: Negative for cough, shortness of breath and wheezing. Hematologic/Lymphatic: Bruises/bleeds easily. Musculoskeletal: Positive for muscle cramps (hands). Negative for joint pain, joint swelling and muscle weakness. Gastrointestinal: Positive for heartburn (occ). Negative for bloating, abdominal pain, constipation, diarrhea, hematochezia, nausea and vomiting. Genitourinary: Negative for hematuria. Neurological: Negative for dizziness, headaches and light-headedness. Vascular: Negative for claudication and lower extremity wounds or ulcers. CARDIOVASCULAR: Please review HPI. Physical Examination General appearance: Alert, oriented and cooperative. In no acute distress. Skin: Warm and dry to touch. Head: Normocephalic Neck: No JVD, No carotid bruit. Respiratory: Clear to auscultation bilaterally Cardiovascular: RRR with normal S1 and S2 with no murmurs. Musculoskeletal: No peripheral edema. Neurologic: nonfocal VITAL SIGNS: BP 126/64 Pulse 96 Ht 180.3 cm (5' 10.98 ) Wt 95.6 kg (210 lb 12.8 oz) SpO2 95% BMI 29.41 kg/m No orders of the defined types were placed in this encounter. Medications Discontinued During This Encounter Medication Reason daridorexant (QUVIVIQ) 50 mg tablet zolpidem (AMBIEN) 10 mg tablet IMPRESSIONS/PLAN 1. Coronary artery disease involving iqugmiut coronary artery of iqugmiut heart without angina pectoris 2. Essential hypertension 3. Mixed hyperlipidemia 1. Coronary artery disease involving iqugmiut coronary artery of iqugmiut heart without angina pectoris Cardiac catheterization 09/18/2021: multivessel CAD with 2/3 bypass grafts patent. Widely patent stent in left main coronary artery. No angina on current medical therapy. 2. Essential hypertension BP today is stable at 126/64. Continue current medication therapy. No changes recommended at this time. 3. Mixed hyperlipidemia Last lipid profile 01/29/2023: Cholesterol 168, HDL 37, LDL 84, triglycerides 237. Continue current medication therapy. Continue medication and diet control and exercise. Total time spent on this patient was 26 minutes: Preparing to see the patient(e.g. review of tests and prior office/hospital notes) Obtaining and/or reviewing separately obtained history Performing and medical specialty appropriate examination and/or evaluation Counseling and educating the patient/family/caregiver Ordering medications,tests or procedures TODAYS ORDERS No orders of the defined types were placed in this encounter. FOLLOW UP Return in about 1 year (around 05/06/2024). PCP: Devaughn Martinez MD Referring Physician: Devaughn Martinez MD [id number] [place] [address] Scribed for and in the presence of REINALDO WARNER MD by Angel Ibarra. Angel Ibarra 05/07/2023 12:20 PM documented in this encounter [facility] 05-06-2023 Miscellaneous Notes Refill to [employer] documented in this encounter [facility] 05-06-2023 Telephone encounter Note Refill to [employer] [facility] 05-06-2023 Miscellaneous Notes Called patient to remind them to bring their most current copy of their medication list with them to their appt. Patient verbalizes understanding. documented in this encounter [facility] 05-06-2023 Telephone encounter Note Called patient to remind them to bring their most current copy of their medication list with them to their appt. Patient verbalizes understanding. [facility] 05-01-2023 History of Presen t illness Narrative New stiffness to L neck/shoulder area. Feels like left trapezius and left armpit is swollen. HPI: REASON FOR VISIT AND HISTORY OF PRESENT ILLNESS Crystal King Jr. is a 77 y.o. 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 Mathew 07/14/2012. HISTORY He initially presented with a 2-3 month history of right testicular pain that radiated up to the abdomen, decreased urine flow, constipation and fatigue that initially was thought to be a kidney stone or UTI. He was placed on an antibiotic by his PCP without resolution of symptoms. His pain worsened so he was referred for a CT scan of the abdomen and pelvis on 03/05/12 which demonstrated a heterogeneously enhancing right retroperitoneal mass measuring 6.7 x 5.4 x 7.2 cm which invades the right psoas muscle and obstructs the right kidney. He was referred to a local urologist who recommended a biopsy of the mass, he preferred to be treated at [facility] and requested a referral. He complained of worsening pain in his back when he lies flat, constipation,decreased appetite, occassional nausea and low grade fevers. He denies blood in his stools or urine, weight loss. He underwent image guided biopsy on 03/31/12 that demonstrated a spindle cell neoplasm, repeat biopsy showed leiomyosarcoma. 06/11/2012: Completed radiation: 5040 cGy of 6 MV photons in 28 fractions of 180 cGy to his right retroperitoneum with an IMRT technique 07/14/2012: underwent exploratory laparotomy, partial right nephrectomy and resection of abdominal mass-pathology WD/DD LPS. He has been followed in surveillance since that time without concern for recurrence. INTERVAL HISTORY Today, he presents with new CT A/P. Overall, he is feeling well without complaints. He is noting new vague discomfort to left neck, like he slept wrong with a tickling sensation . ROS is unremarkable. Past medical, surgical, family, and social histories have been reviewed and updated with the patient today and are located elsewhere in the medical record Medications: Current Outpatient Medications Medication Sig allopurinol 100 MG Tab tablet Take 3 tablets by mouth daily. amlodipine-benazepril 5-20 MG capsule colchicine 0.6 MG Tab tablet Take 1 tablet by mouth daily. duloxetine [address] Particles capsule DR Take 30 mg by mouth daily. fluticasone 50 MCG/ACT Suspension nasal spray 2 sprays by Nasal route. nitroGLYCERIN 0.[address] 1 tablet under tongue every 5 minutes as needed. max = 3 doses. If CP persists after 1st dose, call 911 polyethylene glycol Powder Take 8.5 g by mouth every other day. simvastatin 10 MG Tab Take 1 tablet by mouth every evening at 6 PM. triamcinolone 0.1 % Cream cream Apply 1 Application topically 2 times daily. Use on ankles Wheat Dextrin (BENEFIBER) Powder Take 5 mg by mouth every other day. Zinc 100 MG tablet Take 50 mg by mouth daily. ipratropium 0.03 % Solution 2 sprays by Nasal route as needed. LORazepam 1 MG PO TABS Take 1 mg by mouth every 8 hours as needed. Prasugrel HCl 10 MG tablet Take 10 mg by mouth daily. zolpidem 5 MG Tab Take 10 mg by mouth at bedtime as needed for Sleep. Review of Systems: Review of Systems Constitutional: Negative for activity change, appetite change, chills, fatigue and fever. Respiratory: Negative for cough, shortness of breath and wheezing. Cardiovascular: Negative for chest pain, palpitations and leg swelling. Gastrointestinal: Negative for abdominal pain, constipation, diarrhea, nausea and vomiting. Genitourinary: Negative for dysuria and hematuria. Skin: Negative for color change. Neurological: Negative for dizziness and light-headedness. Physical Exam: BP 138/80 (BP Position: Sitting) Pulse 85 Temp 98.5 F (36.9 C) (Oral) Resp 16 Wt 95.3 kg (210 lb 3.2 oz) SpO2 95% BMI 29.32 kg/m Smoking Status Former Physical Exam Constitutional: Appearance: He is normal weight. He is not ill-appearing. Eyes: General: No scleral icterus. Conjunctiva/sclera: Conjunctivae normal. Cardiovascular: Rate and Rhythm: Normal rate and regular rhythm. Pulses: Normal pulses. Heart sounds: Normal heart sounds. No murmur heard. Pulmonary: Effort: Pulmonary effort is normal. No respiratory distress. Breath sounds: Normal breath sounds. No wheezing. Musculoskeletal: Right lower leg: No edema. Left lower leg: No edema. Comments: No palpable neck or shoulder mass: Equal upper extremity strength/shoulder shrug, and ROM Lymphadenopathy: Cervical: Right cervical: No superficial, deep or posterior cervical adenopathy. Left cervical: No superficial, deep or posterior cervical adenopathy. Skin: General: Skin is warm and dry. Coloration: Skin is not jaundiced or pale. Findings: No erythema. Neurological: Mental Status: He is alert and oriented to person, place, and time. Mental status is at baseline. Cranial Nerves: No cranial nerve deficit. Psychiatric: Mood and Affect: Mood normal. Behavior: Behavior normal. ECOG Performance Status: [address] A/P today Assessment: Crystal King Jr. is a 77 y.o. 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 Mathew 07/14/2012. In surveillance since that time without concerns for recurrence. Plan: 1. F/u final read, RTC PRN. Continue follow up with PCP. Patient will contact the office if any concern or question arises in the meantime. CAROLINA Abbott documented in this encounter [facility] 05-01-2023 Instructions Jocelin Dixon RN - 05/01/2023 12:45 PM EST Your Surgical Oncology Care Team Office: [phone] Javier Calloway/ Dr. Cam Conner Nurse Practitioner--CAROLINA Abbott [email or web address] We would like to hear from you because your opinion matters! We know your time is valuable, but we would greatly appreciate it if you would please complete your Patient Satisfaction Survey and let us know how we are doing. Your feedback will help us to make positive changes to improve clinical outcomes for you and future patients alike. For any questions or concerns, or to share your recent clinic experience please call our Patient Experience Advocate, iVki Braga at [phone]. documented in this encounter [facility] 04-17-2023 Miscellaneous Notes Refill to di documented in this encounter [facility] 04-17-2023 Telephone encounter Note Refill to [employer] [facility] 04-12-2023 Miscellaneous Notes Refill to [employer] documented in this encounter [facility] 04-12-2023 Telephone encounter Note Refill to [employer] [facility] 04-02-2023 History of Presen t illness Narrative Images from the original note were not included. INTERVAL HISTORY: Crystal Nuñez Forrest Friedman [facility] for follow up on 04/02/2023. He is a 77 y.o. male followed at the [facility] Clinic for MIKE, chronic insomnia, nightmares, for which auto-CPAP 5-20 cm H2O and Ambien (per PCP) were prescribed. At the time of the last visit in Dec 2022, the plan was to consider chinstrap and alternate CBTi referral Additional Interval History: He got a chinstrap and is no longer snoring. He continues having trouble falling asleep, can get into bed and not fall asleep until 4am despite Ambien that he has been taking instead of Restoril and then will drink bourbon. The combination is effective, but not either medication or alcohol in isolation is effective. He knows this isn't recommended but inquires as to risks. He is amenable to an alternate hypnotic. He has not tried CBTi and was frustrated trying to contact Dr. Martinez at [facility]. Can take a nap but doesn't. Has tried not using phone after 5p. Current PAP DME Company: [employer] Current PAP interface: He uses a Nasal Mask (AirTouch N20). He does not use a chinstrap. PAP Compliance: Data card was available for PAP usage data download. PAP compliance is excellent. Mather Sleepiness Scale: 09/20/2021 8:05 PM 12/19/2021 1:00 PM 03/27/2022 9:00 AM 09/25/2022 8:00 AM 01/01/2023 9:00 AM 04/02/2023 4:00 PM Mather Sleepiness Scale Sitting and Reading 1 2 1 0 1 1 Watching TV 0 2 0 0 1 1 Sitting inactive in a public place (theater, meeting) 0 1 1 0 1 0 As a passenger in a car for an hour without a break 0 1 0 1 0 0 Lying down in the afternoon to rest 0 3 2 1 0 1 Sitting and talking to someone 0 0 0 0 0 0 Sitting quietly after lunch (without alcohol) 1 2 1 0 2 0 In a car, while stopped for a few minutes in traffic 0 0 0 0 0 0 Total 2 11 5 2 5 3 PAST MEDICAL HISTORY: Patient Active Problem List Diagnosis CAD (coronary artery disease) Essential hypertension AAA (abdominal aortic aneurysm) ([facility]) Generalized anxiety disorder Obstructive sleep apnea syndrome Mixed hyperlipidemia Sarcoma ([facility]) Hyperkalemia Encounter for pre-operative cardiovascular clearance Kidney stone Gallstone Hx of CABG Recurrent depressive disorder, current episode mild ([facility]) Personal history of sarcoma of soft tissue Encounter for colonoscopy due to history of adenomatous colonic polyps Adenomatous polyp of transverse colon Diverticulosis large intestine w/o perforation or abscess w/o bleeding CKD (chronic kidney disease), stage III ([facility]) Solitary kidney Dyspnea on exertion CAD in iqugmiut artery H/O heart artery stent Abnormal stress test Neuralgia of thigh, right MIKE (obstructive sleep apnea) Meralgia paresthetica of right side Lumbar and sacral spondyloarthritis Past Medical History: Diagnosis Date Anxiety Cancer ([facility]) Cataracts, bilateral Depression Fatigue Gallstone Hearing loss Hemorrhoids Hyperlipidemia Hypertension Kidney stone Kidney stone 2018 Pneumonia Single kidney Sleep apnea Vision problems Past Surgical History: Procedure Laterality Date Cardiac catheterization - CORS + GRAFT (27140) Left 09/18/2021 Performed by Reinaldo Warner MD at [facility] CARDIAC MATERIAL [facility] COLONOSCOPY N/A 01/09/2019 Performed by Cabrera Sanchez MD at [facility] Coronary angiogram and graft/iqugmiut N/A 06/29/2020 Performed by Reinaldo Warner MD at [facility] CARDIAC MATERIAL LO[employer]ER CORONARY ARTERY BYPASS GRAFT N/A 04/1999 [facility] Coronary fractional flow reserve N/A 09/18/2021 Performed by Reinaldo Warner MD at [facility] CARDIAC MATERIAL LO[employer]ER Coronary fractional flow reserve N/A 06/29/2020 Performed by Reinaldo Warner MD at [facility] CARDIAC MATERIAL LO[employer]ER Intravascular pressure measurement first vessel each additional vessel (fractional flow reserve) N/A 09/18/2021 Performed by Reinaldo Warner MD at [facility] CARDIAC MATERIAL LO[employer] MAXILLARY ANTROSTOMY Bilateral 12/22/2019 Dr. Nelly Mathias NEPHRECTOMY Right 2012 [facility] SEPTOPLASTY Bilateral [place] 2019 [facility] Stent drug-eluting left main N/A 06/29/2020 Performed by Reinaldo Warner MD at [facility] CARDIAC MATERIAL LO[employer]ER TONSILLECTOMY AND ADENOIDECTOMY Bilateral 1951 ALLERGIES: Allergies Allergen Reactions Amoxicillin Cefzil [Cefprozil] Doxycycline Rosacea Suprax [Cefixime] MEDICATIONS: Current Outpatient Medications on File Prior to Visit Medication Sig Dispense Refill allopurinoL (ZYLOPRIM) 300 mg tablet Take 1 tablet (300 mg total) by mouth in the morning. 90 tablet 3 amLODIPine-benazepril (LOTREL) 5-20 mg per capsule Take 1 capsule by mouth in the morning. 90 capsule 3 aspirin 81 mg Take 1 tablet (81 mg total) by mouth in the morning. colchicine (COLCRYS) 0.6 mg tablet Take 1 tablet (0.6 mg total) by mouth every other day. 45 tablet 1 DULoxetine (CYMBALTA) 30 mg capsule Take 1 capsule (30 mg total) by mouth in the morning. 90 capsule 3 fluticasone propionate (FLONASE) 50 mcg/actuation nasal spray ipratropium (ATROVENT) 42 mcg (0.06 %) nasal spray Administer 2 sprays into each nostril in the morning. magnesium glycinate 100 mg tablet Take 1 tablet (100 mg total) by mouth nightly. 30 tablet 5 nitroglycerin (NITROSTAT) 0.[address] 1 tablet (0.4 mg total) under the tongue every 5 (five) minutes as needed for chest pain. 25 tablet 5 POLYETHYLENE GLYCOL 3350 (MIRALAX ORAL) Take 17 g by mouth every other day. simvastatin (ZOCOR) 10 mg tablet Take 1 tablet (10 mg total) by mouth nightly. 90 tablet 1 tadalafiL (CIALIS) 10 MG tablet Take 1 tablet (10 mg total) by mouth daily as needed for erectile dysfunction. 10 tablet 5 triamcinolone (KENALOG) 0.1 % cream Apply 1 Application topically daily as needed. wheat dextrin 3 gram/3.5 gram powder as directed Orally zinc 50 mg tablet tablet Take 1 tablet (50 mg total) by mouth in the morning. zolpidem (AMBIEN) 10 mg tablet Take 1 tablet (10 mg total) by mouth nightly as needed for sleep. No current facility-administered medications on file prior to visit. FAMILY HISTORY: Family History Problem Relation Age of Onset Diabetes Brother Type 2 Cancer Brother Diabetes Maternal Grandmother Type 2 Depression Maternal Grandmother Ovarian cancer Maternal Grandmother Diabetes Paternal Grandmother Type 2 Depression Paternal Grandmother Mental illness Paternal Grandmother Early Mother Cancer Father Depression Father Cancer Sister Depression Paternal Uncle Alcohol abuse Paternal Grandfather SOCIAL HISTORY: Social History Socioeconomic History Marital status: Spouse name: Not on file Number of children: Not on file Years of education: Not on file Highest education level: Bachelor's degree (e.g., BA, AB, BS) Occupational History Not on file Tobacco Use Smoking status: Former Packs/day: 1.00 Years: 20.00 Additional pack years: 0.00 Total pack years: 20.00 Types: Cigarettes Quit date: 1979 Years since quittin.1 Smokeless tobacco: Never Vaping Use Vaping Use: Never used Substance and Sexual Activity Alcohol use: Yes Alcohol/week: 7.0 standard drinks of alcohol Types: 7 Cans of beer per week Drug use: No Sexual activity: Defer Partners: Female Other Topics Concern Caffeine Use No Coffee Not Asked Tea Not Asked Carbonated Beverages Not Asked Chocolate Not Asked Social History Narrative Not on file Social Determinants of Health Financial Resource Strain: Low Risk (10/10/2020) Overall Financial Resource Strain (CARDIA) Difficulty of Paying Living Expenses: Not hard at all Food Insecurity: No Food Insecurity (01/24/2023) Hunger Screening Food Insecurity - Worry: Never True Food Insecurity - Inability: Never True Transportation Needs: No Transportation Needs (10/10/2020) PRAPARE - Transportation Lack of Transportation (Medical): No Lack of Transportation (Non-Medical): No Physical Activity: Insufficiently Active (10/10/2020) Exercise Vital Sign Days of Exercise per Week: 3 days Minutes of Exercise per Session: 30 min Stress: Stress Concern Present (10/10/2020) [employer] [place] [employer] - Occupational Stress Questionnaire Feeling of Stress : To some extent Social Connections: Moderately Integrated (10/10/2020) Social Connection and Isolation Panel [NHANES] Frequency of Communication with Friends and Family: Twice a week Frequency of Social Gatherings with Friends and Family: Twice a week Attends Orthodoxy Services: More than 4 times per year Active Member of Clubs or Organizations: No Attends Club or Organization Meetings: Never Marital Status: Interpersonal Safety: Not At Risk (10/10/2020) Humiliation, Afraid, Rape, and Kick questionnaire Fear of Current or Ex-Partner: No Emotionally Abused: No Physically Abused: No Sexually Abused: No Housing Instability: Not on file REVIEW OF SYSTEMS: Cardiovascular and pulmonary systems negative. PHYSICAL EXAMINATION: BP 126/67 Pulse 73 Ht 180.3 cm (5' 11 ) Wt 96 kg (211 lb 11.2 oz) SpO2 97% BMI 29.53 kg/m General appearance: Overweight, no acute distress. Eyes: no conjunctival erythema, no scleral icterus. Ears, Nose, Mouth and Throat: external ears unremarkable, external nose unremarkable Neck: trachea position midline. Respiratory: respiratory effort normal Musculoskeletal: normal gait and station. Extremities: No c/c/e. Skin: No rash/ lesions/ulcers/ induration/subcutaneous nodules in visible regions. Tanned. Neurologic: CN II-XII grossly intact. Mental Status: Cognitive: Alert and oriented x 3. Insight good. Judgment good. DATA: Lab Results Component Value Date WBC 4.8 01/29/2023 HGB 14.1 01/29/2023 HCT 41.5 01/29/2023 MCV 100 01/29/2023 PLT 195 01/29/2023 No results found for: FERRITIN Chemistry Component Value Date/Time K 4.6 01/29/2023 0954 CL 103 01/29/2023 0954 CO2 28 01/29/2023 0954 BUN 28 (H) 01/29/2023 0954 CREATININE 1.55 (H) 01/29/2023 0954 GLU 138 (H) 01/29/2023 0954 GLU 110 (H) 06/05/2014 0758 Component Value Date/Time CALCIUM 9.7 01/29/2023 0954 ALKPHOS 94 01/29/2023 0954 AST 15 01/29/2023 0954 AST 17 08/18/2015 1312 ALT 14 01/29/2023 0954 ALT 12 12/10/2019 0927 Lab Results Component Value Date TSH 1.88 01/29/2023 Echo complete W/O contrast Result Date: 06/28/2020 Left Ventricle: There is mild concentric increased wall thickness/hypertrophy. Systolic function is normal with an ejection fraction of 60-65%. Normal diastolic function is present. Lateral E' is 8.77 cm/s. Medial E' is 8.68 cm/s. No primary valve disease PAP data card download 08/22/22 - 09/20/22 7.8 10.2 11.2 Percent days with device use =97% Average use: 8 hours 10 minutes per day Percent days with use >=4 hours: 97% Average AHI = 1.7 Average time in large leak/day = min seconds 95th percentile leak = 30.1 L/min PAP data card download 11/27/22 - 12/26/22 AirSense 11 AutoSet 5-20 9.4 11.5 12.7 Percent days with device use =100% Average use: 8 hours 51 minutes per day Percent days with use >=4 hours: 100% Average AHI = 2.4 Average time in large leak/day = min seconds 95th percentile leak = 27.6 L/min PAP data card download 02/27/23 - 03/28/23 9.7 12.1 13.2 Percent days with device use =97% Average use: 8 hours 12 minutes per day Percent days with use >=4 hours: 93% Average AHI = 4.8 Average time in large leak/day = min seconds 95th percentile leak = 25.8 L/min ASSESSMENT: Mr. King is a 77 y.o. male with medical problems as above, [facility] for: Severe obstructive sleep apnea (August 2021 AHI 48/10 min O2 85%), currently treated with APAP 5-20 Chronic insomnia, on Ambien IR 10mg (with history of tachyphylaxis to Restoril) with inefficacy unless drinking bourbon previously referred to [facility] Parasomnias, resolved with tx of MIKE Coronary artery disease s/p CT, PCI, CABG History of sarcoma, s/p resection with kidney removal with elevated Cr Former smoker Overweight BMI RECOMMENDATIONS: I reviewed his download and commended his compliance with PAP. I encouraged him to continue to use his current machine at his current setting all night every night. He has subjective improvement is compliant and has a reassuring residual AHI and ESS. I renewed his PAP supply order. He is using a chinstrap. Will continue to monitor mild intermittent leak. He is not sleeping well on Ambien unless also drinking bourbon. He previously was on Restoril. I suggested a trial of orexin antagonist like Quviviq instead. He is amenable to trying. Did discuss coupon code for free trial. Only hepatic dosing. OARRS reviewed. Caution re mood. I also placed another referral to [facility] for him to consider this time to Dr. Lopez for a video visit. We may want to consider titration. I encouraged regular follow up with his primary care physician and other specialists for preventative and otherwise indicated health screening as well as management of comorbid medical conditions including CAD. We previously specifically discussed the relationship between heart and sleep. I advise maintenance of a normal body weight, and support annual flu and COVID vaccination. Call if problems/questions arise prior to follow up Follow up in 3 month(s) EDUCATION: Risks of untreated obstructive sleep apnea were reviewed. Driving precautions were reviewed. I advised the patient not to drive if sleepy, and to clod puller if sleepiness occurs while driving. Above plan as discussed with the patient who acknowledged understanding and agreement. Rebeca Ricks MD [facility] [address] [phone] documented in this encounter [facility] [place] [employer] 04-02-2023 Instructions Rebeca Ricks MD - 04/02/2023 4:00 PM EST [facility] 03-25-2023 Miscellaneous Notes Katie requesting refill of Amlodipine/Benazepril to [facility] documented in this encounter [facility] 03-25-2023 Telephone encounter Note Katie requesting refill of Amlodipine/Benazepril to [facility] 03-04-2023 Miscellaneous Notes Refill to [facility] documented in this encounter [facility] 03-04-2023 Telephone encounter Note Refill to [facility] 02-26-2023 Miscellaneous Notes Katie requesting refill of Allopurinol to [facility] documented in this encounter [facility] 02-26-2023 Telephone encounter Note Katie requesting refill of Allopurinol to [facility] Evaluation note Diagnosis Chronic insomnia- Primary Insomnia, unspecified Obstructive sleep apnea Obstructive sleep apnea (adult) (pediatric) Alcohol use Other problems related to lifestyle [facility] Liposarcoma- Primary Malignant neoplasm of connective and other soft tissue, site unspecified [facility] Lip[facility] Malignant neoplasm of connective and other soft tissue, site unspecified Observation for suspected malignant neoplasm [facility] Diagnosis Liposarcoma Malignant neoplasm of connective and other soft tissue, site unspecified [facility] Coronary artery disease involving iqugmiut coronary artery of iqugmiut heart without angina pectoris- Primary Essential hypertension Unspecified essential hypertension Mixed hyperlipidemia [facility] assessment information available [facility] Work Phone: InstructionsNot on filedocumented in this encounter [facility]Not on filedocumented in this encounter [facility] System[facility]ructionsNot on filedocumented in this encounter [facility] SystemReason for referral (narrative)* Consultation (Routine) - Pending Review Specialty Diagnoses / Procedures Referred By Landon hale Referred To Contact Psychology Diagnoses Chronic insomnia Rebeca Ricks MD [address], [address] [address] Rik Lopez, PhD [address] [facility], [facility] [address] [place] [address] Referral ID Status Reason Start Date Expiration Date Visits Requested Visits Authorized [id number] Pending Review Specialty Services Required 04/02/2023 04/01/2024 1 1 * Medication Prior Authorization - Pending Review Specialty Diagnoses / Procedures Referred By Landon hale Referred To Contact Diagnoses Chronic insomnia Rebeca Ricks MD [address], [facility] [address] [place] [address] Referral ID Status Reason Start Date Expiration Date V isits Requested Visits Authorized [id number] Pending Review 1 1 [facility] Summary Purpose Family History No Family History Records FoundNo Family History Records FoundNo Family History Records FoundNo Family History Records FoundNo Family History Records Found Advance Directives No Advanced Directives Records FoundLatest Code Status on File Code Status Date Activated Date Inactivated Comments Full Code-Unverified 07/14/2012 7:26 PM 07/20/2012 1:53 PM Documents on File Type Date Recorded 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 Power of Hatchery Manager 04/11/2021 2:13 PM DURABLE POA 06-22-200 1 Living Will 04/11/2021 2:12 PM LIVING LILLY L 06-22-2002 Documents on File Type Date Recorded 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 Power 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 Manager 04/11/2021 2:13 PM DURABLE POA 06-22-200 1 Living Will 04/11/2021 2:12 PM LIVING LILLY L 06-22-2002 Latest Code Status on File Code Status Date Activated Date Inactivated Comments Full Code-Unverified 07/14/2012 7:26 PM 07/20/2012 1:53 PM Advance Directive Response Recorded Date/ Time Advance Directives No May 31 9:44am Reason for Referral Specialty Diagnoses / Procedures Referred By Landon hale Referred To Contact Diagnoses Liposarcoma Observation for suspected malignant neoplasm Procedures XR CHEST PA AND LATERAL 2 VIEWS Heavenly Frank VEGETABLE TESTER-WATER SOFTENER INSTALLER [address] [place] [address] Referral ID Status Reason Start Date Expiration Date V isits Requested Visits Authorized [id number] New Request 03/01/2023 03/25/2024 1 1 Specialty Diagnoses / Procedures Referred By Landon hale Referred To Contact Diagnoses Liposarcoma Procedures CT ABDOMEN/PELVIS WITHOUT CONTRAST CHG CT SCAN,ABDOMENT AND PELVIS,W/O CONTRAST Heavenly Frank, VEGETABLE TESTER-WATER SOFTENER INSTALLER [address] [place] [address] Referral ID Status Reason Start Date Expiration Date V isits Requested Visits Authorized [id number] New Request 03/01/2023 03/25/2024 1 1 Chief Complaint and Reason for Visit Chief Complaint Cough, Congestion Additional Source Comments (unrecognized sect ion and content) No Status Records FoundNo Status Records FoundNo Status Records FoundNo Status Records FoundNo Status Records Found INFORMATION SOURCE (unrecogn ized section and content) DATE CREATED AUTHOR 04/17/2020 [facility] DATE CREATED AUTHOR AUTHOR'S ORGANIZ ATION 06/20/2022 [facility] DATE CREATED AUTHOR AUTHOR'S ORGANIZ ATION 05/08/2023 [facility] DATE CREATED AUTHOR AUTHOR'S ORGANIZ ATION 06/06/2023 [facility] DATE CREATED AUTHOR AUTHOR'S ORGANIZ ATION 06/07/2023 [facility] Care Teams (unrecognized sec tion and content) Glass Calibrator Relationship Specialty Start Date End Date Devaughn Martinez MD [address] [place] [id number] PCP - General Family Medicine 03/13/12 Emili Martin, RN Registered Nurse 07/14/12 Evelyn Dodd, RN Registered Nurse 08/05/12 Fatoumata Guzman, RN Registered Nurse Surgical Oncology 08/11/13 Reinaldo Warner MD [address] [address] Cardiovascular Disease 05/10/17 Glass Calibrator Relationship Specialty Start Date End Date Devaughn Martinez MD [address] [place] [address] PCP - General 07/25/12 Glass Calibrator Relationship Specialty Start Date End Date Devaughn Martinez MD [address] [place] [address] PCP - General 07/25/12 Glass Calibrator Relationship Specialty Start Date End Date Devaughn Martinez MD [address] [place] [address] PCP - General 07/25/12 Glass Calibrator Relationship Specialty Start Date End Date Devaughn Martinez MD [address] [place] [address] PCP - General 07/25/12 Glass Calibrator Relationship Specialty Start Date End Date Devaughn Martinez MD [address] [place] [phone] PCP - General Family Medicine 03/13/12 Emili Martin, RN Registered Nurse 07/14/12 Evelyn Dodd, RN Registered Nurse 08/05/12 Fatoumata Guzman, RN Registered Nurse Surgical Oncology 08/11/13 Reinaldo Warner MD [address], [facility] [address] [place] [address] Cardiovascular Disease 05/10/17 Glass Calibrator Relationship Specialty Start Date End Date Devaughn Martinez MD [address] [place] [phone] PCP - General Family Medicine 03/13/12 Emili Martin, RN Registered Nurse 07/14/12 Evelyn Dodd, RN Registered Nurse 08/05/12 Fatoumata Guzman, RN Registered Nurse Surgical Oncology 08/11/13 Reinaldo Warner MD [address], [facility] [address] [place] [address] Cardiovascular Disease 05/10/17 Glass Calibrator Relationship Specialty Start Date End Date Devaughn Martinez MD [address] [place] [phone] PCP - General Family Medicine 03/13/12 Emili Martin, RN Registered Nurse 07/14/12 Evelyn Dodd, RN Registered Nurse 08/05/12 Fatoumata Guzman, RN Registered Nurse Surgical Oncology 08/11/13 Reinaldo Warner MD [address], [facility] [address] [place] [address] Cardiovascular Disease 05/10/17 Glass Calibrator Relationship Specialty Start Date End Date Devaughn Martinez MD [address] [place] [address] PCP - General 07/25/12 Glass Calibrator Relationship Specialty Start Date End Date Devaughn Martinez MD [address] [place] [address] PCP - General 07/25/12 Team Status: Active Member Role Status Dates Devaughn Martinez MD Primary Care Provider Active Team Status: Inactive Member Role Status Dates Devaughn Martinez MD Primary Care Provider Active Start: June 01, 2023 End: June 01, 2023 Tere Hernandez APRN Attending Provider Active Start: June 01, 2023 End: June 01, 2023 Reason for Visit (unrecogniz ed section and content) Reason Onset Date Comments Med Refill 02/26/2023 Reason Onset Date Comments Med Refill 03/04/2023 Reason Onset Date Comments Med Refill 03/25/2023 Reason Onset Date Comments Med Refill 04/12/2023 Reason Onset Date Comments Med Refill 04/17/2023 Reason Comments Follow-up Specialty Diagnoses / Procedures Referred By Landon hale Referred To Contact Diagnoses Liposarcoma Observation for suspected malignant neoplasm Procedures XR CHEST PA AND LATERAL 2 VIEWS Heavenly Frank APRN-WATER SOFTENER INSTALLER [address] [place] [address] Referral ID Status Reason Start Date Expiration Date V isits Requested Visits Authorized [id number] New Request 03/01/2023 03/25/2024 1 1 Specialty Diagnoses / Procedures Referred By Landon hale Referred To Contact Diagnoses Liposarcoma Procedures CT ABDOMEN/PELVIS WITHOUT CONTRAST CHG CT SCAN,ABDOMENT AND PELVIS,W/O CONTRAST Heavenly Frank APRN-WATER SOFTENER INSTALLER [address] [place] [address] Referral ID Status Reason Start Date Expiration Date V isits Requested Visits Authorized [id number] New Request 03/01/2023 03/25/2024 1 1 Reason Onset Date Comments Med Refill 05/06/2023 Reason Comments Follow-up 1yr f/u - l/s TLM - no defib or pm - no hosp stays - no covid - testing and labs ordered - [facility] w/ pt's Goals (unrecognized section and content) Goals may be documented in a n alternate section FOR RECORDS PERTAINING TO PATIENTS WHO ARE OR HAVE BEEN ENROLLED IN A CHEMICAL DEPENDENCY/SUBSTANCEABUSE PROGRAM, SOME INFORMATION MAY BE OMITTED. This clinical summary was aggregated from multiple sources. Caution should be exercised in using it in the provision of clinical care. This summary normalizes information from multiple sources, and as a consequence, information in this document may materially change the coding, format and clinical context of patient data. In addition, data may be omitted in some cases. CLINICAL DECISIONS SHOULD BE BASED ON THE PRIMARY CLINICAL RECORDS. [facility]. provides no warranty or guarantee of the accuracy or completeness of information in this document.
[2023-07-07 21:10] LABS: Bilirubin Urine NEGATIVE (NEGATIVE); Blood Urine NEGATIVE (NEGATIVE); Clarity Urine CLEAR (CLEAR); Color Urine YELLOW (YELLOW); Glucose Urine UA NEGATIVE (NEGATIVE); Ketones Urine NEGATIVE (NEGATIVE); Leukocyte Esterase Urine NEGATIVE (NEGATIVE); Nitrite Urine NEGATIVE (NEGATIVE); Protein Urine NEGATIVE (NEG/TRACE); Specific Gravity Urine 1.025 (1.005-1.025); Urobilinogen Urine 0.2 EU/dL (0.2-1.0); pH Urine 5.5 (5.0-9.0)
[2023-07-07 21:13] LABS: Urine Microscopic Indicated NO
[2023-07-07 21:37] LABS: Alanine Aminotransferase 19 U/L (16-63); Albumin Globulin Ratio 1.1; Albumin Level 3.7 g/dL (3.4-5.0); Alkaline Phosphatase 115 U/L (46-116); Anion Gap 13.1; Aspartate Amino Transferase 14 U/L (15-37); BUN Creatinine Ratio 14.6; Bilirubin Total 0.7 mg/dL (0.2-1.0); Calcium 9.8 mg/dL (8.5-10.1); Carbon Dioxide 27.5 mmol/L (21.0-32.0); Chloride 100 mmol/L (98-107); Estimated GFR (African America 47 (>=60); Estimated GFR (Non-African Ame 39 (>=60); Globulin 3.4 g/dL; Glucose 119 mg/dL (74-106); Potassium 4.6 mmol/L (3.5-5.1); Sodium 136 mmol/L (136-145); Total Protein 7.1 g/dL (6.4-8.2)
[2023-07-07 21:38] LABS: Band Neutrophils Absolute 0.4 10^3/uL (0.0-0.3)
[2023-07-08] MEDS: METRONIDAZOLE/SODIUM CHLORIDE 500 MG/100 ML PREMIX 100 MG IV (00:46)
[2023-07-08] MEDS: CIPROFLOXACIN IN 5 % DEXTROSE 400 MG/200 ML PIGGYBACK 200 MG IV (01:42)
[2023-07-08 02:49] VITALS: BP 132/72; PULSE 78; O2SAT 99
== END 2023-07-08 02:49 | disposition home or self-care (01) ==
PROVIDERS: Physician Assistant; Emergency Provider Internal Medicine; PCP Family Medicine
DX: K57.32 Diverticulitis of large intestine without perforation or abscess without bleeding (principal); R10.30 Lower abdominal pain, unspecified; Z85.528 Personal history of other malignant neoplasm of kidney; Z87.891 Personal history of nicotine dependence; K80.20 Calculus of gallbladder without cholecystitis without obstruction
CPT/HCPCS: 36415; 74176; 80053; 81003; 83605; 83690; 85007; 85027; 96365; 96375; 99284; J1170; Q9966